=== PATIENT | female | born 1935 | race Asian ===

== ENCOUNTER 2016-04-16 03:16 | Inpatient (IN) | payer MEDICARE, BC ==
[2016-04-16] MEDS ORDERED: SODIUM CHLORIDE 0.9% 1,000 ML IV STA ×2 (03:37→03:49)
[2016-04-16] MEDS ORDERED: cefTRIAXone 2,000 MG in SODIUM CHLORIDE 0.9% 100 ML IVPB STA (03:37)
[2016-04-16] MEDS ORDERED: ACETAMINOPHEN TAB 500 MG TAB PO STA (03:37)
[2016-04-16] MEDS ORDERED: IBUPROFEN 600 MG TAB PO STA (03:37)
[2016-04-16] MEDS ORDERED: SODIUM CHLORIDE 0.9% 500 ML IV STA (03:37)
--- NOTE | 2016-04-16 03:41 | ED ---
General Adult HPI - General Chief complaint: Abdominal Pain Stated complaint: DX: BLADDER INFECTION. CHILLS Time Seen by Provider: 04/16/16 03:22 Source: patient, RN notes reviewed, old records reviewed Mode of arrival: wheelchair Limitations: no limitations - History of Present Illness Initial comments: This is a 80-year-old female here for evaluation. Patient's to yearly for evaluation of fever. Patient has had continued fever for 2-3 days now. Patient states she does have mild bowel pain anterior suprapubic bowel pain. Patient was recently diagnosed urinary tract infection. Patient denies nausea vomiting. Denies diarrhea, denies cough or congestion - Related Data Home Medications Medication Instructions Recorded Confirmed Celecoxib [CeleBREX] 200 mg PO DAILY 04/16/16 04/16/16 Allergies Allergy/AdvReac Type Severity Reaction Status Date / Time No Known Allergies Allergy Verified 04/16/16 03:30 Review of Systems ROS Statement: Those systems with pertinent positive or pertinent negative responses have been documented in the HPI. ROS Other: All systems not noted in ROS Statement are negative. Past Medical History Past Medical History: Rheumatoid Arthritis (RA) History of Any Multi-Drug Resistant Organisms: None Reported Past Surgical History: Hysterectomy, Orthopedic Surgery Additional Past Surgical History / Comment(s): left knee replacement Past Psychological History: No Psychological Hx Reported Smoking Status: Never smoker Past Alcohol Use History: None Reported Past Drug Use History: None Reported General Exam Limitations: no limitations General appearance: alert, in no apparent distress, anxious Head exam: Present: atraumatic, normocephalic, normal inspection Eye exam: Present: normal appearance, PERRL, EOMI. Absent: scleral icterus, conjunctival injection, periorbital swelling ENT exam: Present: normal exam, mucous membranes moist Neck exam: Present: normal inspection. Absent: tenderness, meningismus, lymphadenopathy Respiratory exam: Present: normal lung sounds bilaterally. Absent: respiratory distress, wheezes, rales, rhonchi, stridor Cardiovascular Exam: Present: regular rate, normal rhythm, normal heart sounds. Absent: systolic murmur, diastolic murmur, rubs, gallop, clicks GI/Abdominal exam: Present: soft, normal bowel sounds. Absent: distended, tenderness, guarding, rebound, rigid Extremities exam: Present: normal inspection, full ROM, normal capillary refill. Absent: tenderness, pedal edema, joint swelling, calf tenderness Back exam: Present: normal inspection Neurological exam: Present: alert, oriented X3, CN II-XII intact Psychiatric exam: Present: normal affect, normal mood Skin exam: Present: warm, dry, intact, normal color. Absent: rash Course Vital Signs 04/16/16 03:25 Temperature 102.1 F H Pulse Rate 16 L Respiratory 96 H Rate Blood Pressure 123/58 O2 Sat by Pulse 95 Oximetry - Reevaluation(s) Reevaluation #1: 04/16/16 04:45 patient refusing CAT scan secondary to recent CAT scan yesterday. Patient would like of results obtained Unable to obtain results of prior CAT scan Reevaluation #2: 04/16/16 04:46 Patient's symptoms are mildly improved with symptomatic control EKG Findings - EKG Comments: EKG Findings:: EKG shows normal sinus rhythm rate of 77, MS 126, QRS 90, QTC 400 Medical Decision Making - Medical Decision Making 80 female to ER for evaluation of bowel pain, severe, UTI, concern for sepsis, patient refusing CAT scan she states she just had one. Unable to get records at this time. Patient does have nausea no vomiting. Weakness and dehydration. Patient be admitted for IV antibiotics and rehydration as well as trying to find results of recent CAT scan - Radiology Data Radiology results: report reviewed (X-ray two-view is negative for acute disease ), image reviewed Disposition Clinical Impression: Abdominal pain, UTI (urinary tract infection), SIRS (systemic inflammatory response syndrome) Disposition: ADMITTED IP TO THIS [facility] Condition: Fair Referrals: Jessica Blas DO [Primary Care Provider] - 1-2 days
[2016-04-16 04:41] LABS: Basophils % (A) 0 %; CHCM 34.2; Eosinophils % (A) 1 %; HCT 33.7 % (34.0-46.0); HDW 2.26; HGB 11.3 gm/dL (11.4-16.0); Luc # (Auto) 0.04; Luc % (Auto) 1; Lymphocytes # (A) 0.3 k/uL (1.0-4.8); Lymphocytes % (A) 5 %; MCH 31.5 pg (25.0-35.0); MCHC 33.6 g/dL (31.0-37.0); MCV 93.7 fL (80.0-100.0); Mean Platelet Volume 6.7; Monocytes # (A) 0.1 k/uL (0-1.0); Monocytes % (A) 2 %; Neutrophils # (A) 5.4 k/uL (1.3-7.7); Neutrophils % (A) 93 %; WBC 5.8 k/uL (3.8-10.6); WBC (Perox) 6.09
[2016-04-16 04:51] LABS: ALT 197 U/L (9-52); AST 345 U/L (14-36); Alkaline Phosphatase 209 U/L (38-126); Anion Gap 12 mmol/L; Blood Urea Nitrogen 12 mg/dL (7-17); Calcium 8.7 mg/dL (8.4-10.2); Carbon Dioxide 21 mmol/L (22-30); Chloride 103 mmol/L (98-107); Glucose 119 mg/dL (74-99); Non-African American GFR(MDRD) >60 (>60 ml/min/1.73 sqM); Potassium 3.8 mmol/L (3.5-5.1); Sodium 136 mmol/L (137-145); Total Bilirubin 0.7 mg/dL (0.2-1.3); Total Protein 5.8 g/dL (6.3-8.2)
--- NOTE | 2016-04-16 04:54 | XR ---
EXAMINATION TYPE: XR chest 2V DATE OF EXAM: 04/16/2016 4:36 AM COMPARISON: NONE HISTORY: Fever and chills TECHNIQUE: Frontal and lateral views of the chest are obtained. FINDINGS: Heart and mediastinum are normal. Lungs are clear of consolidation. There is slight coarse nikki of interstitial markings on the left side. There are no hilar masses. Bony thorax is intact. IMPRESSION: Mild interstitial density on the left side probably relates to some degree of fibrosis. Normal heart.
[2016-04-16] MEDS ORDERED: AMPICILLIN-SULBACTAM 3 GM in SODIUM CHLORIDE 0.9% 100 ML IVPB STA (05:20)
--- NOTE | 2016-04-16 05:21 | ED ---
Medical Decision Making - Medical Decision Making Amonate female here for evaluation. Patient does have abdominal pain, abnormal liver enzymes and gallbladder enzymes, we'll obtain ultrasound of gallbladder. Again patient refusing CAT scan at this time will still attempt to retrieve CAT scan results that she had prior - Lab Data Result diagrams: 04/16/16 04:15 04/16/16 04:15 Lab Results 04/16/16 04/16/16 04/16/16 Range/Units 04:15 04:15 04:15 WBC 5.8 (3.8-10.6) k/uL RBC 3.60 L (3.80-5.40) m/uL Hgb 11.3 L (11.4-16.0) gm/dL Hct 33.7 L (34.0-46.0) % MCV 93.7 (80.0-100.0) fL MCH 31.5 (25.0-35.0) pg MCHC 33.6 (31.0-37.0) g/dL RDW 12.0 (11.5-15.5) % Plt Count 156 (150-450) k/uL Neutrophils % 93 % Lymphocytes % 5 % Monocytes % 2 % Eosinophils % 1 % Basophils % 0 % Neutrophils # 5.4 (1.3-7.7) k/uL Lymphocytes # 0.3 L (1.0-4.8) k/uL Monocytes # 0.1 (0-1.0) k/uL Eosinophils # 0.0 (0-0.7) k/uL Basophils # 0.0 (0-0.2) k/uL Sodium 136 L (137-145) mmol/L Potassium 3.8 (3.5-5.1) mmol/L Chloride 103 (98-107) mmol/L Carbon Dioxide 21 L (22-30) mmol/L Anion Gap 12 mmol/L BUN 12 (7-17) mg/dL Creatinine 0.70 (0.52-1.04) mg/dL Est GFR (MDRD) Af Amer >60 (>60 ml/min/1.73 sqM) Est GFR (MDRD) Non-Af >60 (>60 ml/min/1.73 sqM) Glucose 119 H (74-99) mg/dL Plasma Lactic Acid Arnel 1.8 (0.7-2.0) mmol/L Calcium 8.7 (8.4-10.2) mg/dL Phosphorus 2.0 L (2.5-4.5) mg/dL Magnesium 2.0 (1.6-2.3) mg/dL Total Bilirubin 0.7 (0.2-1.3) mg/dL AST 345 H (14-36) U/L ALT 197 H (9-52) U/L Alkaline Phosphatase 209 H (38-126) U/L Total Protein 5.8 L (6.3-8.2) g/dL Albumin 3.3 L (3.5-5.0) g/dL - Radiology Data Radiology results: report reviewed (Ultrasound abdominal pending) Disposition Clinical Impression: Abdominal pain, UTI (urinary tract infection), SIRS (systemic inflammatory response syndrome) Disposition: ADMITTED IP TO THIS HOSP Condition: Fair
[2016-04-16 05:31] LABS: INR 0.9 (<1.1); Partial Thromboplastin Time 22.8 sec (22.0-30.0); Prothrombin Time 9.5 sec (9.0-12.0)
[2016-04-16 05:54] LABS: Troponin I 0.062 ng/mL (0.000-0.034)
[2016-04-16 06:02] LABS: Amorphous Sediment,Urine Rare /hpf; Appearance,Urine Clear (Clear); Bacteria,Urine Rare /hpf; Bilirubin,Urine Negative (Negative); Glucose,Urine (UA) Negative (Negative); Ketones,Urine Negative (Negative); Leukocyte Esterase,Urine Trace (Negative); Mucus,Urine Rare /hpf; Nitrite,Urine Negative (Negative); Particle Count 2629; Protein,Urine Trace (Negative); RBC,Urine 4 /hpf (0-5); Specific Gravity,Urine 1.007 (1.001-1.035); Squamous Epithelial Cell,Urine <1 /hpf (0-4); UA Billing (MACRO vs. MICRO) MICRO; Urobilinogen,Urine <2.0 mg/dL (<2.0); WBC,Urine 7 /hpf (0-5)
[2016-04-16] MEDS: SODIUM CHLORIDE 0.9% 1,000 ML IV ONE ×2 (06:45→10:30)
[2016-04-16] MEDS ORDERED: SODIUM CHLORIDE 0.9% 500 ML IV ONE (08:37)
[2016-04-16] MEDS ORDERED: ATORVASTATIN 20 MG TAB PO SCH (09:00)
[2016-04-16] MEDS ORDERED: cefTRIAXone 2,000 MG in SODIUM CHLORIDE 0.9% 100 ML IVPB SCH (09:00)
[2016-04-16] MEDS: LEVOTHYROXINE 25 MCG TAB PO SCH (13:11)
--- NOTE | 2016-04-16 13:53 | US ---
EXAMINATION TYPE: US gallbladder DATE OF EXAM: 04/16/2016 10:59 AM COMPARISON: CT on 04/15/2016 at [facility] scanned into PACS CLINICAL HISTORY: elevated liver enzymes. EXAM MEASUREMENTS: Liver Length: 14.3 cm Gallbladder Wall: 0.1 cm CBD: 0.4 cm Right Kidney: 10.4 x 5.2 x 5.5 cm ANATOMY: Pancreas: wnl Liver: no gross abnormality Gallbladder: no stones Evidence for sonographic Funk's sign: yes CBD: wnl Right Kidney: wnl for size, Lower pole, lateral aspect complex mass with thickened rind, no vascula rity measuring 3.6 x 3.6 x 3.1 cm TECHNOLOGIST IMPRESSION: complex mass right kidney as noted above IMPRESSION: 1. 2.9 cm right renal cyst. 2. There is a 3.6 x 3.6 x 3 x 1 cm complex mass at the inferior pole right kidney. Contrast CT of the abdomen is recommended. This is scheduled for the same date Normal Values: Liver Length: < 16cm wnl, 17-18cm upper limits, >18cm enlarged Renal Length = 9 - 12cm GB Wall: < 0.3cm CBD: < 0.6cm or < 1.0cm post cholecystectomy
[2016-04-16] MEDS: SODIUM CHLORIDE 0.9% 1,000 ML IV SCH ×2 (14:52→18:41)
[2016-04-16] MEDS: AMPICILLIN-SULBACTAM 3 GM in SODIUM CHLORIDE 0.9% 100 ML IVPB SCH ×2 (14:56→22:47)
[2016-04-16] MEDS: ATORVASTATIN 20 MG TAB PO SCH (22:47)
[2016-04-17] MEDS ORDERED: ACETAMINOPHEN IV (For NPO) 1,000 MG in EMPTY BAG 1 BAG IVPB PRN (01:08)
[2016-04-17] MEDS ORDERED: VANCOMYCIN 1,000 MG in SODIUM CHLORIDE 0.9% 250 ML IVPB STA (01:14)
--- NOTE | 2016-04-17 02:07 | XR ---
EXAMINATION TYPE: XR chest 1V portable DATE OF EXAM: 04/17/2016 1:23 AM COMPARISON: 04/16/2016 HISTORY: Fever TECHNIQUE: Single frontal view of the chest is obtained. FINDINGS: There is pulmonary interstitial edema. There is slight blunting of the costophrenic angles . There are no hilar masses. Heart size is fairly normal. IMPRESSION: There is increasing pulmonary interstitial infiltrates compared to yesterday that could relate to acute heart failure or interstitial pneumonia. There are probably increasing pleural effusi ons.
[2016-04-17] MEDS ORDERED: RX INFO: IV CONTRAST WAS GIVEN 1 EACH MISC MISCELLANE PRN (03:36)
--- NOTE | 2016-04-17 04:37 | CT ---
EXAMINATION TYPE: CT angio chest DATE OF EXAM: 04/17/2016 4:09 AM COMPARISON: NONE HISTORY: elevated d-dimer CT DLP: 454 mGycm Automated exposure control for dose reduction was used. CONTRAST: CTA scan of the thorax is performed with IV Contrast, patient injected with 80 mL of Omnipaque 350, p ulmonary embolism protocol. MIP images are created and reviewed. 3D reconstructed images are create d on an independent workstation and reviewed. FINDINGS: There are small bilateral pleural effusions. There is a small pericardial effusion. There is normal c ontrast opacification of the pulmonary arteries. I see no filling defect. There is no mediastinal primo nopathy. There are no hilar masses. There is no evidence of aortic aneurysm or dissection. IMPRESSION: NO EVIDENCE OF PULMONARY EMBOLISM. SMALL PLEURAL EFFUSIONS AND PERICARDIAL EFFUSION.
[2016-04-17] MEDS: SODIUM CHLORIDE 0.9% 1,000 ML IV SCH ×2 (06:34→12:10)
[2016-04-17] MEDS: AMPICILLIN-SULBACTAM 3 GM in SODIUM CHLORIDE 0.9% 100 ML IVPB SCH ×3 (06:38→23:50)
[2016-04-17] MEDS: LEVOTHYROXINE 25 MCG TAB PO SCH (06:38)
[2016-04-17 07:08] LABS: Basophils % (A) 0 %; CH 31.6; CHCM 33.1; Eosinophils % (A) 0 %; HCT 29.1 % (34.0-46.0); HDW 2.38; HGB 9.9 gm/dL (11.4-16.0); Luc # (Auto) 0.04; Luc % (Auto) 0; Lymphocytes # (A) 0.3 k/uL (1.0-4.8); Lymphocytes % (A) 3 %; MCH 32.6 pg (25.0-35.0); MCV 95.8 fL (80.0-100.0); Mean Platelet Volume 6.9; Monocytes # (A) 0.3 k/uL (0-1.0); Monocytes % (A) 2 %; Neutrophils # (A) 11.6 k/uL (1.3-7.7); Neutrophils % (A) 95 %; RBC 3.04 m/uL (3.80-5.40); RDW 12.2 % (11.5-15.5); WBC 12.3 k/uL (3.8-10.6); WBC (Perox) 13.34
[2016-04-17 07:22] LABS: Anion Gap 10 mmol/L; Blood Urea Nitrogen 10 mg/dL (7-17); Calcium 7.3 mg/dL (8.4-10.2); Carbon Dioxide 17 mmol/L (22-30); Chloride 111 mmol/L (98-107); Glucose 95 mg/dL (74-99); Non-African American GFR(MDRD) >60 (>60 ml/min/1.73 sqM); Sodium 138 mmol/L (137-145)
[2016-04-17 07:32] LABS: Potassium 2.8 mmol/L (3.5-5.1)
[2016-04-17] MEDS ORDERED: Potassium Replacement Protocol 1 EACH MISC MISCELLANE PRN (07:44)
[2016-04-17] MEDS ORDERED: IV VANCOMYCIN PER PHARMACY 1 EACH MISC MISCELLANE PRN (08:01)
[2016-04-17] MEDS: POTASSIUM CHLORIDE ER 20 MEQ TAB.ER PO SCH ×3 (09:25→13:32)
--- NOTE | 2016-04-17 12:23 | HP ---
DATE OF ADMISSION: 04/16/2016 CHIEF COMPLAINT: Abdominal pains and bladder infection and chills. HISTORY OF PRESENT ILLNESS: This 80 -year-old woman with past medical history of multiple medical problems including history of hypothyroidism, hysterectomy, being followed by Dr. Jessica Chen in the outpatient setting was complaining of abdominal pain, diffuse in character, which is mostly in the right low groin area and also shaking chills, also history of bladder infection also. The patient is evaluated in [facility] and was found to have complex mass in the right kidney was noted. The patient came to [facility] and evaluated included ultrasound, also confirmed the right kidney lower pole lateral aspect, complex mass with thickened vascular dimension 3.6 x 3.6 x 3.1 mm and the patient admitted for further evaluation and treatment. There is no history of fever, rigors or chills. No history of headache, loss of consciousness or seizures. PAST MEDICAL HISTORY: History of rheumatoid arthritis, UTI, history of hypothyroidism, hysterectomy, DJD. Medications prior to admission include home medications include: 1. Nitrofurantoin 100 mg p.o. b.i.d. 2. Synthroid 25 mcg p.o. daily. 3. Celebrex 200 mg p.o. daily. 4. Lipitor 20 mg q.h.s. ALLERGIES: None. FAMILY HISTORY: No history of heart disease or strokes in the family. SOCIAL HISTORY: No history of smoking, no history of alcohol intake. REVIEW OF SYSTEMS: HEENT: No diminished vision. No diminished hearing. CARDIOVASCULAR: No angina or palpitations. RESPIRATORY: No cough. GI: No nausea or vomiting. GENITOURINARY: No dysuria or hematuria. CENTRAL NERVOUS SYSTEM: No numbness or weakness. Allergy/immunology: No asthma or hayfever. MUSCULOSKELETAL: As mentioned earlier. HEMATOLOGY/ONCOLOGY: No history of anemia. ENDOCRINE: No history of diabetes mellitus or hypothyroidism. CONSTITUTIONAL: As mentioned earlier. DERMATOLOGY: Negative. RHEUMATOLOGY: Negative. PSYCHIATRY: As mentioned earlier. PHYSICAL EXAMINATION: The patient is alert and oriented x3. Pulse 55, blood pressure 190/71, respiratory rate 16, temperature 97.9. Pulse ox 97% on room air. HEENT: Conjunctivae normal. NECK: No jugular venous distention. CARDIOVASCULAR: S1, S2 muffled. RESPIRATORY: Breath sounds diminished at the bases. No rhonchi. No crackles. ABDOMEN: Soft. No mass palpable. Minimal tenderness in the right groin area and also right lower abdomen. No ascites. Bowel sounds present. EXTREMITIES: Legs no edema. No swelling. CENTRAL NERVOUS SYSTEM: Higher functions as mentioned earlier. Moves all four limbs. No focal deficits. LYMPHATICS: No lymph nodes palpable in the neck, axillae or groin. SKIN: No ulcer, rash or bleeding. LABS: WBC n, hemoglobin 11.3. Sodium 136. Troponin was 0.06. UA noted. ASSESSMENT: 1. Abdominal pain, possibly right renal complex mass lesion in the kidneys. 2. Anemia, normocytic, anemia of chronic disease. 3. Hyponatremia. 4. Increased AST, ALT; possible acute hepatitis of undetermined etiology. 5. Increased alkaline phosphatase. 6. Hypoalbuminemia. 7. Rule out urinary tract infection. 8. History of rheumatoid arthritis. 9. History of hypothyroidism. 10. History of degenerative joint disease. 11. FULL CODE. RECOMMENDATIONS AND DISCUSSION: In this 80 -year-old woman who presented with multiple complex medical issues, we will monitor the patient closely. Continue the current medications. Continue symptomatic treatment. We will initiate, treat the patient symptomatically. Resume home medications. Broad-spectrum IV antibiotics has been given. We will follow the patient closely. Urology consultation will be requested. Otherwise symptomatic treatment of pain also be offered. Prognosis guarded because of multiple complex medical issues. We will repeat labs tomorrow. Further recommendations to follow. The patient may be asked to follow up with primary physician, Dr. Jessica Chen closely after discharge. Further recommendations to follow. NOBLED
[2016-04-17] MEDS: 0.9% NACL WITH KCL 40 MEQ/L 1,000 ML IV SCH (14:46)
[2016-04-17] MEDS: VANCOMYCIN 1,000 MG in SODIUM CHLORIDE 0.9% 250 ML IVPB SCH (17:38)
[2016-04-17] MEDS ORDERED: ACETAMINOPHEN TAB 325 MG TAB PO PRN (18:25)
[2016-04-17] MEDS ORDERED: HEPARIN SODIUM,PORCINE 5,000 UNIT/ML 1 ML VIAL IV PRN (19:47)
[2016-04-17] MEDS ORDERED: HEPARIN SODIUM,PORCINE 5,000 UNIT/ML 1 ML VIAL IV ONE (19:47)
[2016-04-17 20:18] LABS: Basophils % (A) 0 %; CH 32.4; Eosinophils # (A) 0.1 k/uL (0-0.7); Eosinophils % (A) 0 %; HDW 2.46; HGB 10.7 gm/dL (11.4-16.0); Luc # (Auto) 0.12; Luc % (Auto) 1; Lymphocytes # (A) 0.9 k/uL (1.0-4.8); Lymphocytes % (A) 8 %; MCH 31.1 pg (25.0-35.0); MCHC 31.5 g/dL (31.0-37.0); MCV 98.8 fL (80.0-100.0); Mean Platelet Volume 7.2; Monocytes # (A) 0.3 k/uL (0-1.0); Monocytes % (A) 3 %; Neutrophils # (A) 10.5 k/uL (1.3-7.7); Neutrophils % (A) 88 %; RBC 3.45 m/uL (3.80-5.40); RDW 12.4 % (11.5-15.5); WBC 11.9 k/uL (3.8-10.6); WBC (Perox) 12.69
[2016-04-17 20:27] LABS: INR 1.1 (<1.1); Partial Thromboplastin Time 26.5 sec (22.0-30.0); Prothrombin Time 10.9 sec (9.0-12.0)
[2016-04-17] MEDS: ATORVASTATIN 20 MG TAB PO SCH (20:56)
[2016-04-17] MEDS: HEPARIN SODIUM,PORCINE/D5W PMX 25,000 UNIT in DEXTROSE/WATER 1 500ML.BAG IV SCH (20:57)
[2016-04-18 03:50] LABS: Basophils % (A) 0 %; CH 32.3; CHCM 32.6; Eosinophils # (A) 0.1 k/uL (0-0.7); Eosinophils % (A) 1 %; HCT 31.9 % (34.0-46.0); HDW 2.43; HGB 9.9 gm/dL (11.4-16.0); Luc # (Auto) 0.11; Luc % (Auto) 1; Lymphocytes # (A) 1.2 k/uL (1.0-4.8); Lymphocytes % (A) 11 %; MCH 30.9 pg (25.0-35.0); MCV 99.4 fL (80.0-100.0); Mean Platelet Volume 7.5; Monocytes # (A) 0.4 k/uL (0-1.0); Monocytes % (A) 3 %; Neutrophils # (A) 9.8 k/uL (1.3-7.7); Neutrophils % (A) 84 %; RBC 3.21 m/uL (3.80-5.40); RDW 12.4 % (11.5-15.5); WBC 11.7 k/uL (3.8-10.6); WBC (Perox) 12.18
[2016-04-18 04:05] LABS: Anion Gap 8 mmol/L; Blood Urea Nitrogen 8 mg/dL (7-17); Calcium 7.3 mg/dL (8.4-10.2); Carbon Dioxide 16 mmol/L (22-30); Chloride 118 mmol/L (98-107); Glucose 86 mg/dL (74-99); Non-African American GFR(MDRD) >60 (>60 ml/min/1.73 sqM); Potassium 3.7 mmol/L (3.5-5.1); Sodium 142 mmol/L (137-145)
[2016-04-18] MEDS: 0.9% NACL WITH KCL 40 MEQ/L 1,000 ML IV SCH ×2 (04:07→16:21)
[2016-04-18] MEDS: AMPICILLIN-SULBACTAM 3 GM in SODIUM CHLORIDE 0.9% 100 ML IVPB SCH ×3 (05:41→21:59)
[2016-04-18] MEDS: VANCOMYCIN 1,000 MG in SODIUM CHLORIDE 0.9% 250 ML IVPB SCH ×2 (06:41→23:47)
[2016-04-18] MEDS: LEVOTHYROXINE 25 MCG TAB PO SCH (06:41)
[2016-04-18] MEDS: METOPROLOL TARTRATE 25 MG TAB PO SCH ×2 (10:57→22:06)
[2016-04-18] MEDS: ASPIRIN 81 MG CHEW PO SCH (10:57)
--- NOTE | 2016-04-18 11:48 | PN ---
DATE OF SERVICE: 04/17/2016 This 80-year-old woman who presented with abdominal pain and possible urinary tract infection also had a complex mass lesion in the kidney on the right side. The patient is improved significantly. Patient also had a chest x-ray today, which showed increasing pulmonary infiltrate. Chest CT scan was also done, which showed no evidence of pulmonary embolism, small pericardial and pleural effusions were also noted, some prominence of the veins was also noted. The patient also has severe hypokalemia today at 2.8. The BNP is not available. Infectious Disease evaluation has been sought. The patient is running a fever. PAST MEDICAL HISTORY: Reviewed. REVIEW OF SYSTEMS: CARDIOVASCULAR: As mentioned earlier. RESPIRATORY: As mentioned earlier. GI: No nausea. : No dysuria. NERVOUS SYSTEM: No numbness or weakness. Current medications are reviewed and include: 1. Tylenol p.r.n. 2. Unasyn 3 grams IV q.6h. 3. Levothyroxine. 4. Vancomycin. PHYSICAL EXAMINATION: The patient is alert and oriented x3. Pulse 66, blood pressure 120/72, respirations 18, temperature 96.1, pulse ox 94% on room air. HEENT: Conjunctivae normal. Oral mucosa moist. NECK: No jugular venous distention. No carotid bruit. No lymph node enlargement. CARDIOVASCULAR: S1 and S2, muffled. No S3, no S4. RESPIRATORY: Breath sounds diminished at the bases. Bilateral scattered rhonchi and crackles. ABDOMEN: Soft, nontender. No mass palpable. LEGS: No edema, no swelling. NERVOUS SYSTEM: Higher function as mentioned. Moves all four limbs. No focal motor deficits. LYMPHATIC: No lymphadenopathy in the neck, axillae or groin. SKIN: No ulcer, rash or bleeding. LABS: Sodium 130, potassium 2.8, lactic acid was 6 and WBC 12.3, hemoglobin 9.9. ASSESSMENT: 1. Abdominal pain, possibly right renal complex mass lesion in the kidneys or pyelonephritis on the right side with early sepsis. 2. Rule out congestive heart failure. 3. Severe hypokalemia. 4. Anemia, normocytic, anemia of chronic disease. 5. Hyponatremia. 6. Increased AST, ALT; possible acute hepatitis of undetermined etiology. 7. Increased alkaline phosphatase. 8. Hypoalbuminemia. 9. Possible urinary tract infection. 10. History of rheumatoid arthritis. 11. History of hypothyroidism. 12. History of degenerative joint disease. 13. FULL CODE. RECOMMENDATIONS AND DISCUSSION: In this 80-year-old woman who presented with multiple , will continue the current medications. Continue symptomatic treatment. Otherwise, at this time I would recommend to cutdown the IV fluids, a 2-D echo with Doppler, troponins BNP and also recommend . MTDD
--- NOTE | 2016-04-18 15:27 | CONS ---
DATE OF CONSULTATION: Ms. Bryson is [id number] female who was admitted to the hospital on the 16 of April with abdominal pain with a fever and chills. Her temperature was up to 102. She had evidence of urinary tract infection. Has been evaluated in [facility] and underwent CT scanning of the abdomen revealed a complex cystic mass involving the inferior right kidney with possible inflammation in the right perinephric space. She came into the emergency room at [facility] and subsequently underwent an ultrasound that confirmed the mass. Cardiology consultation was requested because of abnormal troponin. Patient denies any cardiac history. She said she had some chest discomfort on and off in the past but not recently, was evaluated by her primary care physician and her EKGs where unremarkable. She denies any history of exertional chest discomfort. She has no history of dyspnea on exertion, although she was dyspneic yesterday. She has no dizziness, palpitation or syncope. No PND, orthopnea, or peripheral edema. She is reasonably active physically. Her coronary risk factors are negative for smoking. She is nondiabetic, nonhypertensive. She is hyperlipidemic. Her medications at home include: 1. Lipitor 20 mg daily. 2. Macrobid. 3. Synthroid. 4. Celebrex. REVIEW OF SYSTEMS: RESPIRATORY SYSTEM: She has no recent wheezing. No cough. No history of obstructive lung disease. GI system: She has no prior history of GI bleed. No peptic ulcer disease. system: She had dysuria, history of urine tract infection recently and the mass noted on the ultrasound. Nervous system: No history of stroke or seizure. PHYSICAL EXAMINATION: She is a 80-year-old female, alert, oriented, in no apparent distress, temperature on admission of 102.1. She was 104 yesterday, this morning 98.1. Blood pressure 127/60 with a heart in the 70s. HEAD: Normocephalic. EYES: Sclerae anicteric. NECK: Good upstroke. No bruit. No jugular venous distention. LUNGS: Clear to auscultation. HEART: Regular rate rhythm. S1, S2, no S3, with systolic murmur heard at the base. No diastolic murmur. No rub. ABDOMEN: Soft. No significant tenderness. No rebound. Positive bowel sounds. No organomegaly. EXTREMITIES: No edema. Intact distal pulses. Lab data revealed a BUN and creatinine of 10 and 0.7. Potassium 2.8. Her bicarb 16. Her troponin on admission was 0.062, then 2.1, and then 1.64. NT-proBNP is 6600. Hemoglobin 9.9. White blood cells on presentation 5.8 and subsequently up to 12.3. Her EKG on admission revealed sinus mechanism with no acute changes. Subsequent EKG showed T-wave inversion in V1 and V2. She had a CT angiogram of the chest that showed no evidence of pulmonary embolism with small pleural effusion. Her ultrasound of the gallbladder revealed a complex mass at the inferior pole of the right kidney. Her chest x-ray done yesterday revealed suggestion of either interstitial pneumonia or heart failure. IMPRESSION: 1. Elevated troponin consistent with non-ST segment elevation myocardial infarction with T-wave inversion anteriorly. Her scenario raises the possibility of takotsubo syndrome. The patient had no significant chest pain, came into quite febrile and there is evidence of infectious process. 2. Renal mass etiology unclear. 3. History of hyperlipidemia. 4. Increased bicarb, unclear etiology. RECOMMENDATIONS: From the cardiac standpoint, I do not believe that acute angiography is indicated at this time, we will obtain an echocardiogram with Doppler. I will add to her regimen beta masoud, and Aspirin. Her potassium will be supplemented. It is up to 3.7 today. I will repeat her lactic acid was elevated on presentation consistent with sepsis. I believe those findings are indeed the predominantly the etiology behind her troponin elevation but will await the input of the infectious disease service as well as urology service. Depending on the results of her echo and her clinical progress, further recommendation will be made. Thank you for this consult. We will follow with you.
[2016-04-18] MEDS ORDERED: FUROSEMIDE 10 MG/ML 4 ML VIAL ONE ×2 (17:19→18:07)
[2016-04-18] MEDS ORDERED: ALBUTEROL NEBULIZED 2.5 MG/3 ML INHALATION PRN (17:21)
--- NOTE | 2016-04-18 17:36 | XR ---
EXAMINATION TYPE: XR chest 1V DATE OF EXAM: 04/18/2016 5:30 PM COMPARISON: 04/17/2016 HISTORY: Dyspnea TECHNIQUE: Single frontal view of the chest is obtained. FINDINGS: Heart is enlarged. There is pulmonary vascular congestion. There is slight blunting of cos tophrenic angles. There are chest leads. IMPRESSION: Congestive heart failure with mild pulmonary edema. This appears slightly worse than yes terday.
[2016-04-18] MEDS ORDERED: FUROSEMIDE 10 MG/ML 2 ML VIAL IV ONE (17:48)
[2016-04-18] MEDS: ATORVASTATIN 20 MG TAB PO SCH (22:06)
--- NOTE | 2016-04-18 22:50 | P.CONS ---
History of Present Illness - Reason for Consult Consult date: 04/18/16 - Chief Complaint fever and abdominal pain - History of Present Illness Pleasant 80-year-old woman who emigrated from [place] 54 years ago relates that she was in her usual state of quite good health when she had the onset of fever with chills associated with abdominal pain that was more to the right side of her abdomen which was anterior and to the right flank. The patient has a known history of a complex lesion on her right kidney and follows with her primary care physician. There was concerns to a recent bout of cystitis and she was placed on nitrofurantoin. Patient diuresis and she was feeling slightly better than at the significant worsening of her symptoms as above. In because of her increasing symptoms she presented to [facility] [place]. With those of fever and leukocytosis she was admitted to hospital. He was concerns to sepsis, urinary infection and possible pulmonary infection the infectious diseases consultation was requested. She has been seen by cardiology because she was having difficulties with her shortness of breath. She had abnormal cardiac enzymes there was a concern to a non-Q wave myocardial infarction and workup is incurring at this point in time. She is on a heparin infusion at this time. Review of Systems HEENT:Denies headache or acute visual change. Denies sinus or mouth discomforts. Denies neck stiffness or pain. Denies significant oral cavity pain. Denies difficulty on swallowing. Lungs: patient is having some shortness of breath. She's Cardiovascular: She had the springtime is having shortness of breath but is not hving signific to the bathroom. But no sy Gastrointestinal:Denies nausea, vomiting, diarrhea, constipation, hematemesis, melena, hematochezia. No no significant change of bowel habit noticed. Musculoskeletal: denies significant myalgias or arthralgias. No new joint swelling. Denies new back pain. Skin: Denies new rash or lesions. No new ulcers or wounds are related.. Neuro: Denies headache or visual change. Denies any new onset weakness or difficulty with ambulation. Denies falls or seizures. Psychiatric:Denies anxiety or depression. Endocrine: Complaints of fatigue and has had some weight gain Past Medical History Past Medical History: Rheumatoid Arthritis (RA), Thyroid Disorder History of Any Multi-Drug Resistant Organisms: None Reported Past Surgical History: Hysterectomy, Orthopedic Surgery Additional Past Surgical History / Comment(s): left knee replacement Past Anesthesia/Blood Transfusion Reactions: No Reported Reaction Past Psychological History: No Psychological Hx Reported Additional Psychological History / Comment(s): lives with her In the family home. Spends 6 months in [place] each year. Originally from [place] emigrated 54 years ago lasting more than 10 years ago. They have traveled only to [place] since then. No animals in the home. No and else is ill in the home Smoking Status: Never smoker Past Alcohol Use History: None Reported Past Drug Use History: None Reported - Past Family History Father History Unknown: Yes Mother History Unknown: Yes Brother(s) History Unknown: Yes Medications and Allergies Home Medications and Allergies Comment(s): Current Medications Acetaminophen (Tylenol Tab) 650 mg PO Q6HR PRN PRN Reason: Fever and/ or Pain Last Admin: 04/17/16 19:16 Dose: 650 mg Albuterol Sulfate (Ventolin Nebulized) 2.5 mg INHALATION RT-TID PRN PRN Reason: Shortness Of Breath Or Wheezing Last Admin: 04/18/16 17:30 Dose: 2.5 mg Aspirin (Aspirin) 81 mg PO DAILY [facility] Last Admin: 04/18/16 10:57 Dose: 81 mg Atorvastatin Calcium (Lipitor) 20 mg PO HS [facility] Last Admin: 04/18/16 22:06 Dose: 20 mg Furosemide (Lasix) 40 mg IV BID [facility] Heparin Sodium (Porcine) (Heparin) 0 unit IV PER PROTOCOL PRN; Protocol PRN Reason: Low PTT Ampicillin Sodium/Sulbactam (Sodium 3 gm/ Sodium Chloride) 100 mls @ 100 mls/ hr IVPB Q8H [facility] Last Admin: 04/18/16 21:59 Dose: 100 mls/hr Vancomycin HCl 1,000 mg/ (Sodium Chloride) 250 mls @ 125 mls/hr IVPB Q16H [facility] Last Admin: 04/18/16 06:41 Dose: 125 mls/hr Potassium Chloride/Sodium Chloride (Ns-Kcl 40 Meq/L Iv Solution) 1,000 mls @ 75 mls/hr IV .[id number] [facility] Last Admin: 04/18/16 16:21 Dose: 75 mls/hr Heparin Sodium/Dextrose 25,000 (unit/ IV Solution) 500 mls @ 13 mls/hr IV .Q24H [facility]; 12 UNITS/KG/HR PRN Reason: Protocol Last Admin: 04/17/16 20:57 Dose: 12 units/kg/hr, 13 mls/hr Levothyroxine Sodium (Synthroid) 25 mcg PO 0630 [facility] Last Admin: 04/18/16 06:41 Dose: 25 mcg Metoprolol Tartrate (Lopressor) 25 mg PO BID [facility] Last Admin: 04/18/16 22:06 Dose: 25 mg Miscellaneous Information (Rx Info: Iv Contrast Was Given) 1 each MISCELLANE DAILY PRN PRN Reason: Per Protocol Stop: 04/19/16 03:37 Miscellaneous Information (Potassium Per Protocol) 1 each MISCELLANE DAILY PRN ; Protocol PRN Reason: Per Protocol Miscellaneous Information (Vancomycin Trough Due) 0 each MISCELLANE DIRECTED ONE Stop: 04/19/16 13:01 Home Medications Medication Instructions Recorded Confirmed Type Atorvastatin [Lipitor] 20 mg PO HS 04/16/16 04/16/16 History Celecoxib [CeleBREX] 200 mg PO DAILY 04/16/16 04/16/16 History Levothyroxine Sodium [Synthroid] 25 mcg PO DAILY 04/16/16 04/16/16 History Nitrofurantoin Monohyd/M-Cryst 100 mg PO BID 04/16/16 04/16/16 History [Macrobid] Allergies Allergy/AdvReac Type Severity Reaction Status Date / Time No Known Allergies Allergy Verified 04/16/16 03:30 Physical Exam Vitals: Vital Signs Temp Pulse Pulse Resp BP BP Pulse Ox 04/18/16 20:00 97.1 F L 78 18 105/57 96 04/18/16 17:45 108 H 04/18/16 17:31 114 H 04/18/16 16:00 97.6 F 68 16 148/82 98 04/18/16 11:12 97.5 F L 73 16 143/67 99 04/18/16 08:00 96.6 F L 76 16 147/69 97 04/18/16 04:00 96.7 F L 69 18 154/65 94 L 04/18/16 00:00 98.1 F 71 18 127/60 93 L Intake and Output 04/18/16 04/18/16 04/18/16 06:59 14:59 22:59 Intake Total 2102 540 Output Total 800 1100 Balance -800 2102 -560 Intake: IV 100 Ampicillin-Sulbactam 3 gm 100 In Sodium Chloride 0.9% 100 ml @ 100 mls/hr IVPB Q8H [facility] Rx#:[id number] Intake, IV Titration 1042 440 Amount 0.9% NaCl with KCl 40 Meq 675 375 /l 1,000 ml @ 75 mls/hr IV .[id number] [facility] Rx#: [id number] Heparin Sodium,Porcine/ 117 65 D5w Pmx 25,000 unit In Dextrose/Water 1 500ml. bag @ 12 UNITS/KG/HR 13 mls/hr IV .Q24H [facility] Rx#: [id number] Vancomycin 1,000 mg In 250 Sodium Chloride 0.9% 250 ml @ 125 mls/hr IVPB Q16H [facility] Rx#:[id number] Oral 1060 Output: Urine 800 1100 Other: Voiding Method Toilet Toilet Toilet # Voids 3 Weight 56.7 kg pleasant 80-year-old womanappears to be just mildly short of breath. no significant cough to the exam HEENT: Anicteric conjunctiva are pink and moist nasal mucosa grossly intact without significant lesions, there is no thrush.good dentition Neck: The neck is supple without significant lymphadenopathy or thyromegaly. Lungs: there is symmetrical air entry. The R few bibasilar crackles There are a few expiratory wheezes Heart: Regular rate and rhythm with an audible S1-S2, no S3 no S4. There is no significant murmur click or rub, PMI was nondisplaced. Abdomen: Positive bowel sounds soft and nontender without palpable masses or organomegaly. There was no guarding or rebound. Extremities: The upper extremities have excellent pulses they are symmetric, no significant petechiae or telangiectasia. No splinter hemorrhages were noted. The lower extremitieshave just trace edema. The peripheral pulses were 2+ and symmetric. Neuro: Awake alert oriented to person place and time. There are no acute new gross focal sensory motor deficits. Results CBC & Chem 7: 04/18/16 03:20 04/18/16 03:20 Labs: Abnormal Lab Results - Last 24 Hours (Table) 04/18/16 04/18/16 04/18/16 Range/Units 03:20 03:20 03:20 WBC 11.7 H (3.8-10.6) k/uL RBC 3.21 L (3.80-5.40) m/uL Hgb 9.9 L (11.4-16.0) gm/dL Hct 31.9 L (34.0-46.0) % Plt Count 142 L (150-450) k/uL Neutrophils # 9.8 H (1.3-7.7) k/uL APTT 61.9 H (22.0-30.0) sec Chloride 118 H (98-107) mmol/L Carbon Dioxide 16 L (22-30) mmol/L Plasma Lactic Acid Arnel (0.7-2.0) mmol/L Calcium 7.3 L (8.4-10.2) mg/dL Troponin I (0.000-0.034) ng/mL 04/18/16 04/18/16 Range/Units 03:20 17:59 WBC (3.8-10.6) k/uL RBC (3.80-5.40) m/uL Hgb (11.4-16.0) gm/dL Hct (34.0-46.0) % Plt Count (150-450) k/uL Neutrophils # (1.3-7.7) k/uL APTT (22.0-30.0) sec Chloride (98-107) mmol/L Carbon Dioxide (22-30) mmol/L Plasma Lactic Acid Arnel 6.0 H* (0.7-2.0) mmol/L Calcium (8.4-10.2) mg/dL Troponin I 1.640 H* (0.000-0.034) ng/mL Microbiology - Last 24 Hours (Table) 04/17/16 01:39 Blood Culture - Preliminary Blood No Growth after 24 hours 04/17/16 01:06 Blood Culture - Preliminary Blood No Growth after 24 hours Laboratory Results WBC 11.7 k/uL (3.8-10.6) H 04/18/16 03:20 RBC 3.21 m/uL (3.80-5.40) L 04/18/16 03:20 Hgb 9.9 gm/dL (11.4-16.0) L 04/18/16 03:20 Hct 31.9 % (34.0-46.0) L 04/18/16 03:20 MCV 99.4 fL (80.0-100.0) 04/18/16 03:20 MCH 30.9 pg (25.0-35.0) 04/18/16 03:20 MCHC 31.0 g/dL (31.0-37.0) 04/18/16 03:20 RDW 12.4 % (11.5-15.5) 04/18/16 03:20 Plt Count 142 k/uL (150-450) L 04/18/16 03:20 Neutrophils % 84 % 04/18/16 03:20 Lymphocytes % 11 % 04/18/16 03:20 Monocytes % 3 % 04/18/16 03:20 Eosinophils % 1 % 04/18/16 03:20 Basophils % 0 % 04/18/16 03:20 Neutrophils # 9.8 k/uL (1.3-7.7) H 04/18/16 03:20 Lymphocytes # 1.2 k/uL (1.0-4.8) 04/18/16 03:20 Monocytes # 0.4 k/uL (0-1.0) 04/18/16 03:20 Eosinophils # 0.1 k/uL (0-0.7) 04/18/16 03:20 Basophils # 0.0 k/uL (0-0.2) 04/18/16 03:20 PT 10.9 sec (9.0-12.0) 04/17/16 20:03 INR 1.1 (<1.1) 04/17/16 20:03 APTT 61.9 sec (22.0-30.0) H 04/18/16 03:20 D-Dimer 32.25 mg/L FEU (<0.60) H 04/17/16 01:06 Sodium 142 mmol/L (137-145) 04/18/16 03:20 Potassium 3.7 mmol/L (3.5-5.1) 04/18/16 03:20 Chloride 118 mmol/L (98-107) H 04/18/16 03:20 Carbon Dioxide 16 mmol/L (22-30) L 04/18/16 03:20 Anion Gap 8 mmol/L 04/18/16 03:20 BUN 8 mg/dL (7-17) 04/18/16 03:20 Creatinine 0.60 mg/dL (0.52-1.04) 04/18/16 03:20 Est GFR (MDRD) Af Amer >60 (>60 ml/min/1.73 sqM) 04/18/16 03:20 Est GFR (MDRD) Non-Af >60 (>60 ml/min/1.73 sqM) 04/18/16 03:20 Glucose 86 mg/dL (74-99) 04/18/16 03:20 Plasma Lactic Acid Arnel 6.0 mmol/L (0.7-2.0) H* 04/18/16 17:59 Calcium 7.3 mg/dL (8.4-10.2) L 04/18/16 03:20 Phosphorus 2.0 mg/dL (2.5-4.5) L 04/16/16 04:15 Magnesium 1.8 mg/dL (1.6-2.3) 04/17/16 06:19 Total Bilirubin 0.7 mg/dL (0.2-1.3) 04/16/16 04:15 AST 345 U/L (14-36) H 04/16/16 04:15 ALT 197 U/L (9-52) H 04/16/16 04:15 Alkaline Phosphatase 209 U/L (38-126) H 04/16/16 04:15 Total Creatine Kinase 101 U/L (30-135) 04/16/16 04:15 CK-MB (CK-2) 1.0 ng/mL (0.0-2.4) 04/16/16 04:15 CK-MB (CK-2) Rel Index 1.0 04/16/16 04:15 Troponin I 1.640 ng/mL (0.000-0.034) H* 04/18/16 03:20 NT-Pro-B Natriuret Pep 6600 pg/mL 04/17/16 18:13 Total Protein 5.8 g/dL (6.3-8.2) L 04/16/16 04:15 Albumin 3.3 g/dL (3.5-5.0) L 04/16/16 04:15 Urine Color Yellow 04/16/16 04:15 Urine Appearance Clear (Clear) 04/16/16 04:15 Urine pH 5.0 (5.0-8.0) 04/16/16 04:15 Ur Specific [place] 1.007 (1.001-1.035) 04/16/16 04:15 Urine Protein Trace (Negative) H 04/16/16 04:15 Urine Glucose (UA) Negative (Negative) 04/16/16 04:15 Urine Ketones Negative (Negative) 04/16/16 04:15 Urine Blood Trace (Negative) H 04/16/16 04:15 Urine Nitrate Negative (Negative) 04/16/16 04:15 Urine Bilirubin Negative (Negative) 04/16/16 04:15 Urine Urobilinogen <2.0 mg/dL (<2.0) 04/16/16 04:15 Ur Leukocyte Esterase Trace (Negative) H 04/16/16 04:15 Urine RBC 4 /hpf (0-5) 04/16/16 04:15 Urine WBC 7 /hpf (0-5) H 04/16/16 04:15 Urine WBC Clumps Rare /hpf (None) H 04/16/16 04:15 Ur Squamous Epith Cells <1 /hpf (0-4) 04/16/16 04:15 Amorphous Sediment Rare /hpf (None) H 04/16/16 04:15 Urine Bacteria Rare /hpf (None) H 04/16/16 04:15 Urine Mucus Rare /hpf (None) H 04/16/16 04:15 Microbiology 04/16/16 04:15 Blood Blood Culture - Preliminary No Growth after 48 hours 04/17/16 01:39 Blood Blood Culture - Preliminary No Growth after 24 hours 04/17/16 01:06 Blood Blood Culture - Preliminary No Growth after 24 hours 04/16/16 04:15 Urine,Voided Urine Culture - Final Assessment and Plan (1) Abdominal pain Narrative/Plan: Pleasant 80-year-old woman who immigrated from [place] 54 years ago presents to emergency center with fever and abdominal pain. Workup has been occurring so far and has revealed evidence of an ultrasound of the abdomen shows the complex renal mass of the right kidney. This is not new. A neurological consult has been requested it may be followed up in the outpatient setting depending on the findings. She is being treated with nitrofurantoin home, which of course would limited only to cystitis treatment. Is now being treated with ampicillin sulbactam and vancomycin while cultures are in process. Given the abnormal ultrasound with a positive Funk's sign was is reasonable choice with concerns for the possibility even of cholecystitis. However on the exam she has no right upper quadrant tenderness. And does not seem to have acute cholecystitis at this time. She does have shortness of breath is being followed by cardiology. Has concerns to a non-Q wave myocardial infarction. She is on heparin infusion and is being followed because of her shortness of breath. CT pulmonary angiogram without evidence of pulmonary embolism but concerns to pulmonary edema. Cultures are currently in process been negative so far. Urinalysis is surprisingly benign. But she was an outpatient antibiotic therapy. She has leukocytosis is starting to show some improvement. And has related is not having significant urinary symptoms but does have some pulmonary symptoms. Status: Acute (2) UTI (urinary tract infection) Status: Acute
[2016-04-18] MEDS: FUROSEMIDE 10 MG/ML 4 ML VIAL IV SCH (23:56)
[2016-04-19] MEDS: HEPARIN SODIUM,PORCINE/D5W PMX 25,000 UNIT in DEXTROSE/WATER 1 500ML.BAG IV SCH ×2 (04:32→20:00)
[2016-04-19] MEDS: 0.9% NACL WITH KCL 40 MEQ/L 1,000 ML IV SCH ×2 (04:33→14:53)
[2016-04-19] MEDS: AMPICILLIN-SULBACTAM 3 GM in SODIUM CHLORIDE 0.9% 100 ML IVPB SCH ×3 (05:12→21:39)
[2016-04-19] MEDS ORDERED: FUROSEMIDE 10 MG/ML 4 ML VIAL IV SCH (06:00)
[2016-04-19] MEDS: LEVOTHYROXINE 25 MCG TAB PO SCH (06:27)
[2016-04-19 07:00] LABS: Basophils % (A) 0 %; CH 31.9; CHCM 34.4; Eosinophils # (A) 0.1 k/uL (0-0.7); Eosinophils % (A) 0 %; HCT 32.7 % (34.0-46.0); HDW 2.54; HGB 11.1 gm/dL (11.4-16.0); Luc # (Auto) 0.32; Luc % (Auto) 2; Lymphocytes # (A) 1.3 k/uL (1.0-4.8); Lymphocytes % (A) 6 %; MCH 31.8 pg (25.0-35.0); MCHC 34.1 g/dL (31.0-37.0); Monocytes # (A) 0.6 k/uL (0-1.0); Monocytes % (A) 3 %; Neutrophils # (A) 17.7 k/uL (1.3-7.7); Neutrophils % (A) 89 %; RDW 12.4 % (11.5-15.5); WBC 19.9 k/uL (3.8-10.6); WBC (Perox) 20.62
[2016-04-19 07:04] LABS: MCV 93.3 fL (80.0-100.0)
[2016-04-19] MEDS: METOPROLOL TARTRATE 25 MG TAB PO SCH ×2 (07:43→19:49)
[2016-04-19] MEDS: ASPIRIN 81 MG CHEW PO SCH (07:43)
[2016-04-19] MEDS: FUROSEMIDE 10 MG/ML 4 ML VIAL IV SCH ×2 (07:43→19:50)
[2016-04-19 08:08] LABS: Anion Gap 11 mmol/L; Calcium 8.3 mg/dL (8.4-10.2); Carbon Dioxide 24 mmol/L (22-30); Chloride 111 mmol/L (98-107); Glucose 112 mg/dL (74-99); Non-African American GFR(MDRD) >60 (>60 ml/min/1.73 sqM); Sodium 146 mmol/L (137-145)
[2016-04-19 08:13] LABS: Blood Urea Nitrogen 10 mg/dL (7-17); Potassium 3.3 mmol/L (3.5-5.1)
[2016-04-19] MEDS ORDERED: POTASSIUM CHLORIDE ER 20 MEQ TAB.ER PO SCH (11:45)
[2016-04-19 12:29] VITALS: BMI 22.6
[2016-04-19] MEDS ORDERED: VANCOMYCIN TROUGH DUE 1 EACH MISC MISCELLANE ONE (13:00)
--- NOTE | 2016-04-19 14:00 | PN ---
DATE OF SERVICE: 04/18/2016 This 80 -year-old woman who was admitted with abdominal pain, had possible right renal complex mass lesion. The patient also had possibly congestive heart failure as well and patient is hypokalemia which improved to 3.7, troponin elevated to 2.110 raising the possibility of acute non-ST segment elevation myocardial infarction, acute coronary syndrome. The lactic acid is elevated at 16. Patient being treated with empiric antibiotics. Infectious disease evaluation has been sought. The patient being closely monitored at this time. The most recent chest x-ray was reviewed which showed some CHF also. A 2-D echo with Doppler has been requested. PAST MEDICAL HISTORY: Reviewed. REVIEW OF SYSTEMS: CARDIOVASCULAR: As mentioned earlier. RESPIRATORY: As mentioned earlier. GASTROINTESTINAL: As mentioned earlier. GENITOURINARY: As mentioned earlier. CENTRAL NERVOUS SYSTEM: No focal deficits. The current medications are reviewed and include: 1. Tylenol 650 q.6 p.r.n. 2. Ventolin q.i.d. p.r.n. 3. Unasyn. 4. Aspirin 81 mg. 5. Lasix 40 mg IV b.i.d. 6. Heparin IV drip. 7. Synthroid. 8. Lopressor. 9. Vancomycin. Patient is alert and oriented x2. Pulse is 78, blood pressure is 105/59, respiratory rate 18, temperature 97.1, pulse ox 97% on 2 L. HEENT: Conjunctivae normal. Oral mucosa moist. NECK: No jugular venous distention. No carotid bruit. No lymph node enlargement. CARDIOVASCULAR: S1, S2 muffled. RESPIRATORY: Breath sounds diminished at the bases. A few scattered rhonchi and crackles. ABDOMEN: Soft, nontender. No mass palpable. LEGS: No edema. No swelling. Nervous system: Higher function as mentioned. Moves all four limbs. No focal deficits. LYMPHATICS: No lymph nodes palpable in the neck, axillae or groin. SKIN: No ulcer, rash or bleeding. LABS: WBC 11.7, hemoglobin 9.9, APTT 1.9. Otherwise, CO2 16. Troponin noted and lactic acid is 6. ASSESSMENT: 1. Abdominal pain, possibly urinary tract infection with sepsis, possible pyelonephritis on the right side. 2. Possible right renal complex mass lesion in the kidneys. 3. Troponin elevated up to 2.110, acute non- ST segment elevation myocardial infarction. 4. Possible congestive heart failure. 5. Severe hypokalemia. 6. Anemia, normocytic, anemia of chronic disease. 7. Hyponatremia. 8. Increased AST, ALT; possible acute hepatitis undetermined origin. 9. Increased alk phos. 10. Hypoalbuminemia. 11. History of rheumatoid arthritis. 12. History of hypothyroidism. 13. degenerative joint disease . 14. Immunosuppressed. 15. FULL CODE. RECOMMENDATIONS AND DISCUSSION: In this 80 -year-old woman who presented with multiple complex medical issues, we will monitor the patient closely. Continue the current medications. Continue symptomatic treatment. I would recommend continuing with broad-spectrum IV antibiotics. Cultures are negative so far. Follow closely with infectious disease and as well as cardiology. Prognosis guarded because of multiple complex medical issues. Will discuss with the patient and the patient's at the bedside who understands and agrees. Further recommendations to follow. NOBLED
[2016-04-19] MEDS: ISOSORBIDE MONONITRATE ER 30 MG TAB.ER.24H PO SCH (14:22)
[2016-04-19] MEDS: POTASSIUM CHLORIDE ER 20 MEQ TAB.ER PO SCH ×3 (14:22→19:49)
[2016-04-19] MEDS: VANCOMYCIN 1,000 MG in SODIUM CHLORIDE 0.9% 250 ML IVPB SCH (14:30)
--- NOTE | 2016-04-19 18:49 | P.GSCN ---
History of Present Illness Consult date: 04/19/16 Reason for Consult: Complex renal cystic mass Requesting physician: Sharita Morrison History of present illness: The patient is a 80-year-old woman who emigrated from [place] in the early 1960s. She denies any prior history of urolithiasis. She was treated for UTIs in her early adult years, but none in the past 30 years. However, she was recently treated for a UTI as an outpatient. She was evaluated at [facility] in April 15, 2016 with complaints of abdominal pain, dyspnea , fever, and chills. A computed tomography scan without contrast showed a right lower pole complex cystic renal mass. She has been admitted and treated with antibiotics. Urine and blood cultures have been negative. Her condition is much improved. Her troponin levels were elevated, and she is being evaluated for the possibility of an [place]. Review of Systems - Constitutional Reports fever - Respiratory Reports dyspnea - Gastrointestinal Reports abdominal pain - Genitourinary Genitourinary: Denies dysuria, Denies hematuria Past Medical History Past Medical History: Rheumatoid Arthritis (RA), Thyroid Disorder History of Any Multi-Drug Resistant Organisms: None Reported Past Surgical History: Hysterectomy, Orthopedic Surgery Additional Past Surgical History / Comment(s): left knee replacement Past Anesthesia/Blood Transfusion Reactions: No Reported Reaction Past Psychological History: No Psychological Hx Reported Additional Psychological History / Comment(s): lives with her In the family home. Spends 6 months in [place] each year. Originally from [place] emigrated 54 years ago lasting more than 10 years ago. They have traveled only to [place] since then. No animals in the home. No and else is ill in the home Smoking Status: Never smoker Past Alcohol Use History: None Reported Past Drug Use History: None Reported - Past Family History Father History Unknown: Yes Mother History Unknown: Yes Brother(s) History Unknown: Yes Medications and Allergies Home Medications Medication Instructions Recorded Confirmed Type Atorvastatin [Lipitor] 20 mg PO HS 04/16/16 04/16/16 History Celecoxib [CeleBREX] 200 mg PO DAILY 04/16/16 04/16/16 History Levothyroxine Sodium [Synthroid] 25 mcg PO DAILY 04/16/16 04/16/16 History Nitrofurantoin Monohyd/M-Cryst 100 mg PO BID 04/16/16 04/16/16 History [Macrobid] Allergies Allergy/AdvReac Type Severity Reaction Status Date / Time No Known Allergies Allergy Verified 04/16/16 03:30 Surgical - Exam Vital Signs Temp Pulse Resp BP Pulse Ox 102.1 F H 16 L 96 H 123/58 95 04/16/16 03:25 04/16/16 03:25 04/16/16 03:25 04/16/16 03:25 04/16/16 03:25 - General well developed, well nourished, no distress - Abdomen Abdomen: soft, non tender, no guarding, no rigid, no rebound - Psychiatric oriented to time, oriented to person, oriented to place, speech is normal, memory intact Results - Labs 04/19/16 06:29 04/19/16 06:29 Abnormal Lab Results - Last 24 Hours (Table) 04/18/16 04/19/16 04/19/16 Range/Units 17:59 06:29 06:29 WBC 19.9 H (3.8-10.6) k/uL RBC 3.50 L (3.80-5.40) m/uL Hgb 11.1 L (11.4-16.0) gm/dL Hct 32.7 L (34.0-46.0) % Plt Count 141 L (150-450) k/uL Neutrophils # 17.7 H (1.3-7.7) k/uL APTT (22.0-30.0) sec Sodium 146 H (137-145) mmol/L Potassium 3.3 L (3.5-5.1) mmol/L Chloride 111 H (98-107) mmol/L Glucose 112 H (74-99) mg/dL Plasma Lactic Acid Arnel 6.0 H* (0.7-2.0) mmol/L Calcium 8.3 L (8.4-10.2) mg/dL 04/19/16 Range/Units 06:29 WBC (3.8-10.6) k/uL RBC (3.80-5.40) m/uL Hgb (11.4-16.0) gm/dL Hct (34.0-46.0) % Plt Count (150-450) k/uL Neutrophils # (1.3-7.7) k/uL APTT 35.0 H (22.0-30.0) sec Sodium (137-145) mmol/L Potassium (3.5-5.1) mmol/L Chloride (98-107) mmol/L Glucose (74-99) mg/dL Plasma Lactic Acid Arnel (0.7-2.0) mmol/L Calcium (8.4-10.2) mg/dL Microbiology - Last 24 Hours (Table) 04/17/16 01:39 Blood Culture - Preliminary Blood No Growth after 48 hours 04/17/16 01:06 Blood Culture - Preliminary Blood No Growth after 48 hours Diabetes panel 04/19/16 Range/Units 06:29 Sodium 146 H (137-145) mmol/L Potassium 3.3 L (3.5-5.1) mmol/L Chloride 111 H (98-107) mmol/L Carbon Dioxide 24 (22-30) mmol/L BUN 10 (7-17) mg/dL Creatinine 0.75 (0.52-1.04) mg/dL Glucose 112 H (74-99) mg/dL Calcium 8.3 L (8.4-10.2) mg/dL Calcium panel 04/19/16 Range/Units 06:29 Calcium 8.3 L (8.4-10.2) mg/dL Pituitary panel 04/19/16 Range/Units 06:29 Sodium 146 H (137-145) mmol/L Potassium 3.3 L (3.5-5.1) mmol/L Chloride 111 H (98-107) mmol/L Carbon Dioxide 24 (22-30) mmol/L BUN 10 (7-17) mg/dL Creatinine 0.75 (0.52-1.04) mg/dL Glucose 112 H (74-99) mg/dL Calcium 8.3 L (8.4-10.2) mg/dL Adrenal panel 04/19/16 Range/Units 06:29 Sodium 146 H (137-145) mmol/L Potassium 3.3 L (3.5-5.1) mmol/L Chloride 111 H (98-107) mmol/L Carbon Dioxide 24 (22-30) mmol/L BUN 10 (7-17) mg/dL Creatinine 0.75 (0.52-1.04) mg/dL Glucose 112 H (74-99) mg/dL Calcium 8.3 L (8.4-10.2) mg/dL - Imaging CT scan - abdomen: report reviewed Assessment and Plan Plan: The patient is a 80-year-old white female admitted with fever, chills, abdominal pain, and dyspnea. She recently was treated for a UTI as an outpatient. Her admitting urinalysis was unremarkable. Her condition is much improved. A computed tomography scan of the abdomen and pelvis without contrast performed at [facility] on 04/15/2016 revealed a 3.7 x 2.8 cm complex cystic mass with areas of high attenuation suggesting blood products involving the posterolateral aspect of the lower pole of the right kidney. Perinephric stranding was also noted. Unfortunately, the images are unavailable for review. Ultrasound shows an avascular 3.6 cm right lower pole complex cystic mass with a thickened capsule. Arrangements will be made for her to undergo a triphase computed tomography scan of the kidneys upon discharge, and she will subsequently follow up with me in the office.
[2016-04-19] MEDS: ATORVASTATIN 20 MG TAB PO SCH (19:49)
--- NOTE | 2016-04-19 21:19 | PN ---
Mrs. Bryson is a 80-year-old female who presented with symptoms of fever, evidence to suggests urinary tract infection who had mild elevation of troponin. She has some diarrhea. She has some dyspnea yesterday, better this morning. She has no chest pain. She has no dizziness, palpitation. She has no nausea. She has been seen by Dr. Rodriguez in regards to her infectious process. She continues to be on Lasix 40 mg IV q.12 hours, aspirin, Lipitor 20 mg daily, metoprolol tartrate 25 mg twice a day in addition to vancomycin. She is lying supine without any symptoms at this time. PHYSICAL EXAMINATION: Blood pressure running in the one teens with the heart rate in the 50s. LUNGS: Clear. HEART: Regular rate rhythm. S1, S2, no S3, no rub appreciated. ABDOMEN: Soft, nontender, positive bowel sounds. EXTREMITIES: No edema. Chest x-ray revealed evidence of fluid overload. BUN and creatinine revealed 10 and 0.75, potassium 3.3. Her lactic acid is down 1.4. Hemoglobin 11.1, white blood cell of 19.9. IMPRESSION: 1. Urinary tract infection with initial elevated lactic acid. 2. Elevation of troponin suggestive of non- ST segment elevation myocardial infarction most likely related to a type II event. 3. Episode of dyspnea with mild failure. RECOMMENDATIONS: I will obtain echocardiogram tomorrow, add to her regimen nitrate. Patient may require coronary angiography, but will follow her infectious process to make sure she is stable before proceeding with that. Depending on her progress, further recommendation will be made.
[2016-04-20] MEDS: AMPICILLIN-SULBACTAM 3 GM in SODIUM CHLORIDE 0.9% 100 ML IVPB SCH ×3 (05:15→20:56)
[2016-04-20] MEDS: HEPARIN SODIUM,PORCINE/D5W PMX 25,000 UNIT in DEXTROSE/WATER 1 500ML.BAG IV SCH ×2 (06:01→20:43)
[2016-04-20] MEDS: VANCOMYCIN 1,000 MG in SODIUM CHLORIDE 0.9% 250 ML IVPB SCH ×2 (06:16→22:16)
[2016-04-20] MEDS: LEVOTHYROXINE 25 MCG TAB PO SCH (06:16)
[2016-04-20 06:24] LABS: Basophils % (A) 0 %; CH 31.9; CHCM 33.4; Eosinophils # (A) 0.2 k/uL (0-0.7); Eosinophils % (A) 2 %; HCT 31.7 % (34.0-46.0); HDW 2.53; HGB 10.2 gm/dL (11.4-16.0); Luc # (Auto) 0.28; Luc % (Auto) 3; Lymphocytes # (A) 1.5 k/uL (1.0-4.8); Lymphocytes % (A) 16 %; MCH 30.7 pg (25.0-35.0); MCHC 32.1 g/dL (31.0-37.0); MCV 95.7 fL (80.0-100.0); Mean Platelet Volume 7.6; Monocytes # (A) 0.5 k/uL (0-1.0); Monocytes % (A) 5 %; Neutrophils % (A) 73 %; RBC 3.31 m/uL (3.80-5.40); RDW 12.5 % (11.5-15.5); WBC 9.5 k/uL (3.8-10.6); WBC (Perox) 9.96
[2016-04-20 06:40] LABS: Anion Gap 8 mmol/L; Blood Urea Nitrogen 15 mg/dL (7-17); Calcium 7.9 mg/dL (8.4-10.2); Carbon Dioxide 25 mmol/L (22-30); Chloride 109 mmol/L (98-107); Glucose 100 mg/dL (74-99); Non-African American GFR(MDRD) >60 (>60 ml/min/1.73 sqM); Potassium 3.1 mmol/L (3.5-5.1); Sodium 142 mmol/L (137-145)
[2016-04-20] MEDS: 0.9% NACL WITH KCL 40 MEQ/L 1,000 ML IV SCH ×2 (06:50→20:48)
[2016-04-20 08:58] VITALS: RESP 16
[2016-04-20] MEDS: ISOSORBIDE MONONITRATE ER 30 MG TAB.ER.24H PO SCH (09:01)
[2016-04-20] MEDS: METOPROLOL TARTRATE 25 MG TAB PO SCH ×2 (09:04→20:45)
[2016-04-20] MEDS: ASPIRIN 81 MG CHEW PO SCH (09:04)
[2016-04-20] MEDS: POTASSIUM CHLORIDE ER 20 MEQ TAB.ER PO SCH ×2 (09:04→20:45)
[2016-04-20] MEDS: FUROSEMIDE 10 MG/ML 4 ML VIAL IV SCH ×2 (09:04→20:45)
--- NOTE | 2016-04-20 09:49 | PN ---
DATE OF SERVICE: 04/19/2016 This 80-year-old woman was admitted with multiple medical problems, status post abdominal pain, UTI, right renal complex mass lesion, also had elevated troponin, possibly indicating acute usn-UX-drljeouva myocardial infarction. Last night, the patient also has, patient feeling much after diuretics. Patient also had possibility of sepsis, also the patient on broad-spectrum IV antibiotics, lactic acid is normal at this time. Dr. Cisneros has evaluated the patient for the right kidney mass and recommend outpatient followup. No chest pain or palpitation. No fever. PAST MEDICAL HISTORY: Reviewed. REVIEW OF SYSTEMS: CARDIOVASCULAR: As mentioned earlier. RESPIRATORY: As mentioned earlier. GI: No nausea, no vomiting. : No dysuria. NERVOUS SYSTEM: No numbness, weakness. ALLERGY/IMMUNOLOGY: No asthma or hayfever. MUSCULOSKELETAL: As mentioned earlier. Current medications are reviewed and include: 1. Tylenol 650 q.6 p.r.n. 2. Unasyn 3 gm IV q.6. 3. Lipitor. 4. Lasix. 5. Heparin. 6. Imdur 30 mg daily. 7. Synthroid. 8. Lopressor 25 mg p.o. b.i.d. 9. KCl. PHYSICAL EXAM: Patient is alert and oriented x3. The pulse is 86, blood pressure 130/77, respirations 16, temperature is 97.4, pulse ox 94% room air. HEENT: Conjunctivae normal. NECK: No jugular venous distension. CARDIOVASCULAR: S1, S2. RESPIRATORY: Breath sounds diminished at the bases. A few scattered rhonchi. ABDOMEN: Soft, nontender, no mass palpable. EXTREMITIES: Bilateral legs no edema, no swelling. NERVOUS SYSTEM: No focal deficits. LABS: WBC is 19.9, hemoglobin is 11.1, sodium is 146, potassium 3.1 and other labs are noted. The last chest x-ray was presently evaluated and showed evidence of CHF. ASSESSMENT: 1. Abdominal pain, possible urinary tract infection with sepsis, possible pyelonephritis on the right side. 2. Possible right renal complex mass lesion of the kidneys. 3. Troponin elevated up to 2.110, acute [id number]-gnyjtshvf myocardial infarction. 4. Congestive heart failure acute exacerbation with ejection fraction unknown. 5. Severe hypokalemia. 6. Anemia, normocytic anemia of chronic disease. 7. Hyponatremia. 8. Increased AST, ALT; possible acute hepatitis of undetermined origin. 9. Increased alkaline phosphatase. 10. Hypoalbuminemia. 11. History of rheumatoid arthritis. 12. History of hypothyroidism. 13. History of degenerative joint disease, immunosuppressed. 14. FULL CODE. RECOMMENDATION: Recommend to continue with the current medications. Continue with the monitoring and symptomatic treatment. Otherwise at this time I would recommend to continue with the diuretics. I would also recommend a regular dose of potassium as well. Otherwise, guarded prognosis because of multiple complex medical issues and further recommendations to follow. See orders for further details. MTDD
--- NOTE | 2016-04-20 12:59 | ECHOF ---
Referral Reason:chf MEASUREMENTS -------- HEIGHT: 157.5 cm WEIGHT: 51.7 kg BP: 108/54 RVIDd: 2.2 cm (< 3.3) IVSd: 0.9 cm (0.6 - 1.1) LVIDd: 4.3 cm (3.9 - 5.3) LVPWd: 1.0 cm (0.6 - 1.1) IVSs: 1.2 cm LVIDs: 2.7 cm LVPWs: 1.1 cm LA Diam: 2.8 cm (2.7 - 3.8) LAESV Index (A-L): 23.49 ml/m Ao Diam: 2.8 cm (2.0 - 3.7) AV Cusp: 1.7 cm (1.5 - 2.6) LA Diam: 3.6 cm (2.7 - 3.8) MV EXCURSION: 14.642 mm (> 18.000) MV EF SLOPE: 81 mm/s (70 - 150) EPSS: 0.4 cm MV E Brian: 0.66 m/s MV DecT: 180 ms MV A Brian: 0.39 m/s MV E/A Ratio: 1.69 AR PHT: 840 ms RAP: 5.00 mmHg RVSP: 30.27 mmHg FINDINGS -------- Sinus rhythm. This was a technically adequate study. There is borderline concentric left ventricular hypertrophy. Overall left ventricular systolic function is mildly impaired with, an EF between 45 - 50 %. Anterseptal Hypokinesis Lateral hypokinesis The right ventricle is normal in size. The right atrial size is normal. There is mild aortic valve sclerosis. Trace to mild aortic regurgitation. Mild mitral annular calcification present. Mild mitral regurgitation is present. Mild tricuspid regurgitation present. There is no evidence of pulmonary hypertension. The right ventricular systolic pressure, as measured by Doppler, is 30.27mmHg. There is no pulmonic regurgitation present. The aortic root size is normal. There is no pericardial effusion. CONCLUSIONS -------- 1. There is borderline concentric left ventricular hypertrophy. 2. There is no evidence of pulmonary hypertension. 3. The right ventricular systolic pressure, as measured by Doppler, is 30.27mmHg. 4. There is no pulmonic regurgitation present. 5. The aortic root size is normal. 6. There is no pericardial effusion. 7. Overall left ventricular systolic function is mildly impaired with, an EF between 45 - 50 %. 8. Anterseptal Hypokinesis 9. Lateral hypokinesis 10. There is mild aortic valve sclerosis. 11. Trace to mild aortic regurgitation. 12. Mild mitral annular calcification present. 13. Mild mitral regurgitation is present. 14. Mild tricuspid regurgitation present. GATE TENDER: Christen Dean RDCS
[2016-04-20] MEDS ORDERED: NITROGLYCERIN SL TABS 0.4 MG TAB SUBLINGUAL PRN (14:55)
[2016-04-20] MEDS ORDERED: ASPIRIN 325 MG TAB PO STA (14:55)
[2016-04-20] MEDS ORDERED: ALPRAZolam 0.5 MG TAB PO PRN (14:55)
[2016-04-20] MEDS ORDERED: ATORVASTATIN 80 MG TAB PO STA (14:55)
[2016-04-20] MEDS ORDERED: ALPRAZolam 0.25 MG TAB PO PRN (14:55)
[2016-04-20] MEDS ORDERED: SODIUM CHLORIDE 0.9% 1,000 ML in EMPTY BAG 1 BAG IV ONE (14:55)
--- NOTE | 2016-04-20 15:51 | P.PN ---
Subjective Principal diagnosis: UTI/sepsis This is a 80-year-old female who presented to the hospital with symptoms of fever and urinary tract infection. She was also noted to have elevation in troponin with some ST-T wave changes also noted on her EKG. Echocardiogram with Doppler study was performed which revealed an ejection fraction between 45 and 50% with anterior septal and lateral hypokinesia. She continues to be on IV Lasix at this time. Dr. terrance Castro did have a discussion with the patient today regarding proceeding with cardiac catheterization, the risks and the benefits were explained to the patient in detail. This will be performed tomorrow by Dr. Morris. Potassium 3.1, replaced. Weight is down 4 kg. Objective - Vital Signs Vital signs: Vital Signs Temp 96.6 F L 04/20/16 15:40 Pulse 58 L 04/20/16 15:40 Resp 16 04/20/16 15:40 BP 127/63 04/20/16 15:40 Pulse Ox 99 04/20/16 15:40 Intake & Output 04/19/16 04/20/16 04/20/16 18:59 06:59 18:59 Intake Total 126.554 0041.795 300 Output Total 1999 2375 2650 Balance -1150.000 -1299.205 -2350 Weight 56.2 kg 52 kg Intake: IV 100 200 Ampicillin-Sulbactam 3 gm 100 200 In Sodium Chloride 0.9% 100 ml @ 100 mls/hr IVPB Q8H [facility] Rx#:[id number] Intake, IV Titration 750.000 475.795 Amount 0.9% NaCl with KCl 40 Meq 0 110 /l 1,000 ml @ 75 mls/hr IV .[id number] [facility] Rx#: [id number] Heparin Sodium,Porcine/ 500.000 365.795 D5w Pmx 25,000 unit In Dextrose/Water 1 500ml. bag @ 12 UNITS/KG/HR 13 mls/hr IV .Q24H [facility] Rx#: [id number] Vancomycin 1,000 mg In 250 Sodium Chloride 0.9% 250 ml @ 125 mls/hr IVPB Q16H [facility] Rx#:[id number] Oral 400 300 Output: Urine 1999 2375 2650 Other: Voiding Method Toilet Toilet Toilet # Voids 1 1 1 - Exam PHYSICAL EXAMINATION: HEENT: Head is atraumatic, normocephalic. Pupils equal, round. Neck is supple. There is no elevated jugular venous pressure. HEART EXAMINATION: Heart S1, S2 normal. No murmur or gallop heard. CHEST EXAMINATION: Lungs are clear to auscultation and precussion. No chest wall tenderness is noted on palpation or with deep breathing. ABDOMEN: Soft, nontender. Bowel sounds are heard. No organomegaly noted. EXTREMITIES: 2+ peripheral pulses with no evidence of peripheral edema and no calf tenderness noted. NEUROLOGIC patient is awake, alert and oriented -3. . - Labs CBC & Chem 7: 04/20/16 05:50 04/20/16 12:10 Labs: Abnormal Lab Results - Last 24 Hours (Table) 04/19/16 04/20/16 04/20/16 Range/Units 18:07 05:50 05:50 RBC 3.31 L (3.80-5.40) m/uL Hgb 10.2 L (11.4-16.0) gm/dL Hct 31.7 L (34.0-46.0) % APTT (22.0-30.0) sec Potassium 3.1 L 3.1 L (3.5-5.1) mmol/L Chloride 109 H (98-107) mmol/L Glucose 100 H (74-99) mg/dL Calcium 7.9 L (8.4-10.2) mg/dL 04/20/16 04/20/16 Range/Units 05:50 12:10 RBC (3.80-5.40) m/uL Hgb (11.4-16.0) gm/dL Hct (34.0-46.0) % APTT 64.8 H (22.0-30.0) sec Potassium 3.2 L (3.5-5.1) mmol/L Chloride (98-107) mmol/L Glucose (74-99) mg/dL Calcium (8.4-10.2) mg/dL Microbiology - Last 24 Hours (Table) 04/17/16 01:39 Blood Culture - Preliminary Blood No Growth after 72 hours 04/17/16 01:06 Blood Culture - Preliminary Blood No Growth after 72 hours Assessment and Plan (1) Sepsis Status: Acute (2) Non-ST elevated myocardial infarction Status: Acute (3) Diastolic CHF, acute on chronic Status: Acute (4) Rheumatoid arthritis Status: Acute (5) Hypothyroid Status: Acute (6) UTI (urinary tract infection) Status: Acute Plan: Cardiology's perspective, we'll discontinue the IV Lasix and start the patient on oral diuretics. Patient will undergo cardiac catheterization tomorrow by Dr. Morris. Further recommendations will be based on these findings. We will check lytes BUN and creatinine in the morning. DNP note has been reviewed, I agree with a documented findings and plan of care. Patient was seen and examined.
[2016-04-20] MEDS: ATORVASTATIN 20 MG TAB PO SCH (20:45)
--- NOTE | 2016-04-20 21:37 | PN ---
DATE OF SERVICE: 04/20/2015 This 80-year-old woman who was admitted with abdominal pain also had right renal complex mass lesion, elevated troponins. Seen and evaluated the patient along with nurse practitioner. Please refer to the nurse practitioner notes and impression documented as a scribe for further information.
--- NOTE | 2016-04-20 22:08 | P.PN ---
Subjective Principal diagnosis: Fever Pleasant 80-year-old woman who emigrated from [facility] [place] years ago relates that she was in her usual state of quite good health when she had the onset of fever with chills associated with abdominal pain that was more to the right side of her abdomen which was anterior and to the right flank. The patient has a known history of a complex lesion on her right kidney and follows with her primary care physician. There was concerns to a recent bout of cystitis and she was placed on nitrofurantoin. Patient diuresis and she was feeling slightly better than at the significant worsening of her symptoms as above. In because of her increasing symptoms she presented to [facility] emergency [facility]. With those of fever and leukocytosis she was admitted to hospital. He was concerns to sepsis, urinary infection and possible pulmonary infection the infectious diseases consultation was requested. She has been seen by cardiology because she was having difficulties with her shortness of breath. She had abnormal cardiac enzymes there was a concern to a non-Q wave myocardial infarction and workup is incurring at this point in time. She remains on her heparin drip pending the cardiac catheterization tomorrow. She's feeling considerably better today. Fever has resolved. Objective - Vital Signs Vital signs: Vital Signs Temp 97 F L 04/20/16 20:22 Pulse 61 04/20/16 20:22 Resp 16 04/20/16 20:22 BP 120/62 04/20/16 20:22 Pulse Ox 96 04/20/16 20:22 Intake & Output 04/20/16 04/20/16 04/21/16 06:59 18:59 06:59 Intake Total 1075.795 969 227.098 Output Total 2375 2950 Balance -1299. 227.098 Weight 52 kg Intake: IV 200 Ampicillin-Sulbactam 3 gm 200 In Sodium Chloride 0.9% 100 ml @ 100 mls/hr IVPB Q8H [facility] Rx#:[id number] Intake, IV Titration 475.795 549 227.098 Amount 0.9% NaCl with KCl 40 Meq 110 /l 1,000 ml @ 75 mls/hr IV .[id number] [facility] Rx#: [id number] Ampicillin-Sulbactam 3 gm 100 In Sodium Chloride 0.9% 100 ml @ 100 mls/hr IVPB [facility] Rx#:[id number] Heparin Sodium,Porcine/ 365.795 227.098 D5w Pmx 25,000 unit In Dextrose/Water 1 500ml. bag @ 12 UNITS/KG/HR 13 mls/hr IV .Q24H [facility] Rx#: [id number] Sodium Chloride 0.9% 1, 324 000 ml In Empty Bag 1 bag @ 1 ML/KG/HR 52 mls/hr IV .[id number] [facility] Rx#: [id number] Vancomycin 1,000 mg In 125 Sodium Chloride 0.9% 250 ml @ 125 mls/hr IVPB Q16H [facility] Rx#:[id number] Oral 400 420 Output: Urine 2375 2950 Other: Voiding Method Toilet Toilet Toilet # Voids 1 1 - Exam pleasant 80-year-old womanappears to be just mildly short of breath. no significant cough to the exam HEENT: Anicteric conjunctiva are pink and moist nasal mucosa grossly intact without significant lesions, there is no thrush.good dentition Neck: The neck is supple without significant lymphadenopathy or thyromegaly. Lungs: there is symmetrical air entry. The R few bibasilar crackles There are a few expiratory wheezes Heart: Regular rate and rhythm with an audible S1-S2, no S3 no S4. There is no significant murmur click or rub, PMI was nondisplaced. Abdomen: Positive bowel sounds soft and nontender without palpable masses or organomegaly. There was no guarding or rebound. Extremities: The upper extremities have excellent pulses they are symmetric, no significant petechiae or telangiectasia. No splinter hemorrhages were noted. The lower extremitieshave just trace edema. The peripheral pulses were 2+ and symmetric. Neuro: Awake alert oriented to person place and time. There are no acute new gross focal sensory motor deficits. - Labs CBC & Chem 7: 04/20/16 05:50 04/20/16 12:10 Labs: Abnormal Lab Results - Last 24 Hours (Table) 04/20/16 04/20/16 04/20/16 Range/Units 05:50 05:50 05:50 RBC 3.31 L (3.80-5.40) m/uL Hgb 10.2 L (11.4-16.0) gm/dL Hct 31.7 L (34.0-46.0) % APTT 64.8 H (22.0-30.0) sec Potassium 3.1 L (3.5-5.1) mmol/L Chloride 109 H (98-107) mmol/L Glucose 100 H (74-99) mg/dL Calcium 7.9 L (8.4-10.2) mg/dL 04/20/16 Range/Units 12:10 RBC (3.80-5.40) m/uL Hgb (11.4-16.0) gm/dL Hct (34.0-46.0) % APTT (22.0-30.0) sec Potassium 3.2 L (3.5-5.1) mmol/L Chloride (98-107) mmol/L Glucose (74-99) mg/dL Calcium (8.4-10.2) mg/dL Microbiology - Last 24 Hours (Table) 04/17/16 01:39 Blood Culture - Preliminary Blood No Growth after 72 hours 04/17/16 01:06 Blood Culture - Preliminary Blood No Growth after 72 hours Laboratory Results WBC 9.5 k/uL (3.8-10.6) 04/20/16 05:50 RBC 3.31 m/uL (3.80-5.40) L 04/20/16 05:50 Hgb 10.2 gm/dL (11.4-16.0) L 04/20/16 05:50 Hct 31.7 % (34.0-46.0) L 04/20/16 05:50 MCV 95.7 fL (80.0-100.0) 04/20/16 05:50 MCH 30.7 pg (25.0-35.0) 04/20/16 05:50 MCHC 32.1 g/dL (31.0-37.0) 04/20/16 05:50 RDW 12.5 % (11.5-15.5) 04/20/16 05:50 Plt Count 163 k/uL (150-450) 04/20/16 05:50 Neutrophils % 73 % 04/20/16 05:50 Lymphocytes % 16 % 04/20/16 05:50 Monocytes % 5 % 04/20/16 05:50 Eosinophils % 2 % 04/20/16 05:50 Basophils % 0 % 04/20/16 05:50 Neutrophils # 7.0 k/uL (1.3-7.7) 04/20/16 05:50 Lymphocytes # 1.5 k/uL (1.0-4.8) 04/20/16 05:50 Monocytes # 0.5 k/uL (0-1.0) 04/20/16 05:50 Eosinophils # 0.2 k/uL (0-0.7) 04/20/16 05:50 Basophils # 0.0 k/uL (0-0.2) 04/20/16 05:50 PT 10.9 sec (9.0-12.0) 04/17/16 20:03 INR 1.1 (<1.1) 04/17/16 20:03 APTT 64.8 sec (22.0-30.0) H 04/20/16 05:50 D-Dimer 32.25 mg/L FEU (<0.60) H 04/17/16 01:06 Sodium 142 mmol/L (137-145) 04/20/16 05:50 Potassium 3.2 mmol/L (3.5-5.1) L 04/20/16 12:10 Chloride 109 mmol/L (98-107) H 04/20/16 05:50 Carbon Dioxide 25 mmol/L (22-30) 04/20/16 05:50 Anion Gap 8 mmol/L 04/20/16 05:50 BUN 15 mg/dL (7-17) 04/20/16 05:50 Creatinine 0.60 mg/dL (0.52-1.04) 04/20/16 05:50 Est GFR (MDRD) Af Amer >60 (>60 ml/min/1.73 sqM) 04/20/16 05:50 Est GFR (MDRD) Non-Af >60 (>60 ml/min/1.73 sqM) 04/20/16 05:50 Glucose 100 mg/dL (74-99) H 04/20/16 05:50 Plasma Lactic Acid Arnel 1.4 mmol/L (0.7-2.0) 04/18/16 23:55 Calcium 7.9 mg/dL (8.4-10.2) L 04/20/16 05:50 Phosphorus 2.0 mg/dL (2.5-4.5) L 04/16/16 04:15 Magnesium 1.8 mg/dL (1.6-2.3) 04/17/16 06:19 Total Bilirubin 0.7 mg/dL (0.2-1.3) 04/16/16 04:15 AST 345 U/L (14-36) H 04/16/16 04:15 ALT 197 U/L (9-52) H 04/16/16 04:15 Alkaline Phosphatase 209 U/L (38-126) H 04/16/16 04:15 Total Creatine Kinase 101 U/L (30-135) 04/16/16 04:15 CK-MB (CK-2) 1.0 ng/mL (0.0-2.4) 04/16/16 04:15 CK-MB (CK-2) Rel Index 1.0 04/16/16 04:15 Troponin I 1.640 ng/mL (0.000-0.034) H* 04/18/16 03:20 NT-Pro-B Natriuret Pep 6600 pg/mL 04/17/16 18:13 Total Protein 5.8 g/dL (6.3-8.2) L 04/16/16 04:15 Albumin 3.3 g/dL (3.5-5.0) L 04/16/16 04:15 Urine Color Yellow 04/16/16 04:15 Urine Appearance Clear (Clear) 04/16/16 04:15 Urine pH 5.0 (5.0-8.0) 04/16/16 04:15 Ur Specific [place] 1.007 (1.001-1.035) 04/16/16 04:15 Urine Protein Trace (Negative) H 04/16/16 04:15 Urine Glucose (UA) Negative (Negative) 04/16/16 04:15 Urine Ketones Negative (Negative) 04/16/16 04:15 Urine Blood Trace (Negative) H 04/16/16 04:15 Urine Nitrate Negative (Negative) 04/16/16 04:15 Urine Bilirubin Negative (Negative) 04/16/16 04:15 Urine Urobilinogen <2.0 mg/dL (<2.0) 04/16/16 04:15 Ur Leukocyte Esterase Trace (Negative) H 04/16/16 04:15 Urine RBC 4 /hpf (0-5) 12/30/16 04:15 Urine WBC 7 /hpf (0-5) H 04/16/16 04:15 Urine WBC Clumps Rare /hpf (None) H 04/16/16 04:15 Ur Squamous Epith Cells <1 /hpf (0-4) 04/16/16 04:15 Amorphous Sediment Rare /hpf (None) H 04/16/16 04:15 Urine Bacteria Rare /hpf (None) H 04/16/16 04:15 Urine Mucus Rare /hpf (None) H 04/16/16 04:15 Vancomycin Trough 11.6 ug/mL 04/19/16 13:27 Microbiology 04/16/16 04:15 Blood Blood Culture - Preliminary No Growth after 96 hours 04/17/16 01:39 Blood Blood Culture - Preliminary No Growth after 72 hours 04/17/16 01:06 Blood Blood Culture - Preliminary No Growth after 72 hours 04/16/16 04:15 Urine,Voided Urine Culture - Final Assessment and Plan (1) Abdominal pain Narrative/Plan: Pleasant 80-year-old woman who immigrated from [place] 54 years ago presents to emergency center with fever and abdominal pain. Workup has been occurring so far and has revealed evidence of an ultrasound of the abdomen shows the complex renal mass of the right kidney. This is not new. A neurological consult has been requested it may be followed up in the outpatient setting depending on the findings. She is being treated with nitrofurantoin home, which of course would limited only to cystitis treatment. Is now being treated with ampicillin sulbactam and vancomycin while cultures are in process. Given the abnormal ultrasound with a positive Funk's sign was is reasonable choice with concerns for the possibility even of cholecystitis. However on the exam she has no right upper quadrant tenderness. And does not seem to have acute cholecystitis at this time. She does have shortness of breath is being followed by cardiology. Has concerns to a non-Q wave myocardial infarction. She is on heparin infusion and is being followed because of her shortness of breath. CT pulmonary angiogram without evidence of pulmonary embolism but concerns to pulmonary edema. Cultures are currently in process been negative so far. Urinalysis is surprisingly benign. But she was an outpatient antibiotic therapy. She has leukocytosis which is now improved. And has related is not having significant urinary symptoms but does have some pulmonary symptoms. Patient will have cardiac catheterization tomorrow. Afterwards further she will have antibiotic therapy can be considered. If cultures all remained negative potentially could be placed on oral Augmentin to complete a course of therapy. In ongoing follow-up with urology regarding the abnormality seen on her imaging studies. Status: Acute (2) UTI (urinary tract infection) Status: Acute
[2016-04-21] MEDS ORDERED: ASPIRIN 325 MG TAB PO ONE (04:00)
[2016-04-21] MEDS ORDERED: ATORVASTATIN 80 MG TAB PO ONE (05:00)
[2016-04-21] MEDS: AMPICILLIN-SULBACTAM 3 GM in SODIUM CHLORIDE 0.9% 100 ML IVPB SCH ×2 (05:57→13:41)
[2016-04-21] MEDS: LEVOTHYROXINE 25 MCG TAB PO SCH (05:57)
[2016-04-21 06:07] LABS: Glucose,Whole Blood 119 mg/dL (75-99)
[2016-04-21 06:57] LABS: Basophils % (A) 0 %; CH 31.5; CHCM 33.4; Eosinophils # (A) 0.2 k/uL (0-0.7); Eosinophils % (A) 2 %; HCT 35.9 % (34.0-46.0); HDW 2.45; HGB 11.8 gm/dL (11.4-16.0); Luc % (Auto) 2; Lymphocytes # (A) 1.4 k/uL (1.0-4.8); Lymphocytes % (A) 14 %; MCH 31.2 pg (25.0-35.0); MCHC 32.9 g/dL (31.0-37.0); MCV 94.9 fL (80.0-100.0); Mean Platelet Volume 6.7; Monocytes # (A) 0.4 k/uL (0-1.0); Monocytes % (A) 3 %; Neutrophils # (A) 8.2 k/uL (1.3-7.7); Neutrophils % (A) 79 %; RBC 3.78 m/uL (3.80-5.40); RDW 12.4 % (11.5-15.5); WBC 10.4 k/uL (3.8-10.6); WBC (Perox) 11.02
[2016-04-21 07:43] LABS: Anion Gap 12 mmol/L; Blood Urea Nitrogen 15 mg/dL (7-17); Calcium 8.9 mg/dL (8.4-10.2); Carbon Dioxide 30 mmol/L (22-30); Chloride 103 mmol/L (98-107); Glucose 117 mg/dL (74-99); Non-African American GFR(MDRD) >60 (>60 ml/min/1.73 sqM); Potassium 3.4 mmol/L (3.5-5.1); Sodium 145 mmol/L (137-145)
[2016-04-21] MEDS ORDERED: fentaNYL (PF) 50 MCG/ML 2 ML AMP ONE (08:30)
[2016-04-21] MEDS ORDERED: LIDOCAINE 2% INJ 20 MG/ML (20 ML MDV) ONE (08:30)
[2016-04-21] MEDS ORDERED: diphenhydrAMINE 50 MG/ML 1 ML VIAL ONE (08:31)
[2016-04-21] MEDS ORDERED: SODIUM CHLORIDE 0.9% (PF) 10 ML VIAL ONE (08:31)
[2016-04-21] MEDS ORDERED: VERAPAMIL 2.5 MG/ML 2 ML AMP ONE (08:31)
[2016-04-21] MEDS ORDERED: fentaNYL (PF) 50 MCG/ML 2 ML AMP IV ONE (08:34)
[2016-04-21] MEDS ORDERED: diphenhydrAMINE 50 MG/ML 1 ML VIAL IVP ONE (08:34)
[2016-04-21] MEDS ORDERED: LIDOCAINE 2% INJ 20 MG/ML SQ ONE (08:36)
[2016-04-21] MEDS ORDERED: SODIUM CHLORIDE 0.9% 1,000 ML IV ONE (08:40)
[2016-04-21] MEDS ORDERED: HEPARIN SODIUM 1,000 UNIT/ML VIAL ONE (08:40)
[2016-04-21] MEDS ORDERED: VERAPAMIL SYRINGE (5 MG/10 ML) INTRAARTER ONE (08:41)
[2016-04-21] MEDS ORDERED: HEPARIN SODIUM 1,000 UNIT/ML VIAL IV ONE (08:49)
[2016-04-21] MEDS ORDERED: IOHEXOL 350 MG/ML 100 ML BOTTLE INJ ONE (08:57)
[2016-04-21] MEDS ORDERED: RX INFO: IV CONTRAST WAS GIVEN 1 EACH MISC MISCELLANE PRN (09:04)
[2016-04-21] MEDS ORDERED: ATORVASTATIN 40 MG TAB PO SCH (09:06)
[2016-04-21] MEDS ORDERED: SODIUM CHLORIDE 0.9% 1,000 ML IV SCH (09:15)
[2016-04-21] MEDS ORDERED: LISINOPRIL 5 MG TAB PO SCH (09:15)
[2016-04-21] MEDS: FUROSEMIDE 10 MG/ML 4 ML VIAL IV SCH (09:20)
[2016-04-21] MEDS: METOPROLOL TARTRATE 25 MG TAB PO SCH (09:22)
[2016-04-21] MEDS: ISOSORBIDE MONONITRATE ER 30 MG TAB.ER.24H PO SCH (09:22)
[2016-04-21] MEDS: POTASSIUM CHLORIDE ER 20 MEQ TAB.ER PO SCH (09:23)
[2016-04-21] MEDS: 0.9% NACL WITH KCL 40 MEQ/L 1,000 ML IV SCH (11:31)
[2016-04-21] MEDS: VANCOMYCIN 1,000 MG in SODIUM CHLORIDE 0.9% 250 ML IVPB SCH (14:35)
[2016-04-21 15:50] VITALS: BP 109/54; PULSE 62; TEMP 97.6
--- NOTE | 2016-04-21 21:03 | CC ---
DATE OF SERVICE: Mrs. Bryson is a 80-year-old female with known history of hyperlipidemia, who presented with urosepsis. She had mild elevation of troponin and T wave inversion anteriorly. In view of that, recommendation was made regarding cardiac catheterization. The procedure as well as the risks and complications were discussed with the patient who was in full understanding and agreement. PROCEDURE: The patient was brought to the [facility] in [facility] semisedated state. After receiving fentanyl and Benadryl she was draped and prepped in conventional fashion. Using Xylocaine anesthesia and Seldinger technique, a 6 Monegasque sheath was introduced in the right radial artery. Selective right and left coronary angiography was performed using 5 Monegasque 3 and a half bend right and left Haider catheter. Multiple views of the right coronary artery including hemiaxial views were obtained. Following that, a 5 Monegasque tight pigtail catheter was introduced into the left ventricle and a 30 degree MARQUEZ view of the left ventricle was obtained. Following that, catheter and sheaths were removed. Hemostasis was obtained with deployment of TR band. There were no immediate complications. Patient is returned to her room in stable condition. Of note, the patient received 3000 units of intravenous heparin as well as intra-arterial verapamil. FINDINGS: Fluoroscopy: There is severe calcification involving all the coronary arteries. LEFT MAIN: This is a large-size vessel, trifurcating into left circumflex artery and left anterior descending coronary artery and ramus intermedius. Left main coronary artery is without any obstructive coronary artery disease. LEFT ANTERIOR DESCENDING CORONARY ARTERY: This is a large-size tapers down in the distal third giving rise to a large diagonal branch in the mid segment. The takeoff of the diagonal branch, there is a 30% plaque. The rest of the vessel has no high-grade stenosis. CIRCUMFLEX CORONARY ARTERY: Left circumflex: This is a nondominant vessel, giving rise to a large obtuse marginal branch. In the mid segment of the left circumflex, there is a plaque of about 50 to 60%. The rest of the vessel has no high-grade stenosis. Ramus intermedius. This vessel is small in caliber. There is no evidence of high-grade stenosis. RIGHT CORONARY ARTERY: This is a large dominant vessel, bifurcating distally into PDA and posterolateral segment and branches. The right PDA reaches towards the inferoapical segment. The right coronary artery in mid segment has an eccentric 40% plaque. The takeoff of the PDA has another 40% plaque. The rest of the vessel has no high-grade stenosis. Left ventriculogram: Left ventriculogram performed in 30 degrees MARQUEZ view and revealed the mid anterolateral wall hypokinesis. Estimated ejection fraction is 50%. There was no significant mitral regurgitation. HEMODYNAMICS: There was no gradient across the aortic valve. The left ventricular end-diastolic pressure was 12 mmHg. CONCLUSION: 1. Severely calcified coronary arteries. 2. Moderate triple vessel coronary artery disease. 3. Mildly impaired left ventricular systolic function. RECOMMENDATIONS: In view of the findings and the anatomy, I recommend continued medical therapy with the aggressive coronary risk factor modifications that have been initiated. Those findings and recommendations were discussed with the patient who is in full understanding and agreement.
--- NOTE | 2016-04-21 21:05 | LTR ---
April 21, 2016 RE: Fatou Bryson Dear Dr. Chen: I had the pleasure of performing cardiac catheterization on Mrs. Bryson at [facility] on the april and a full copy of procedure note will be forwarded to you. In brief, she was found to have calcified coronary arteries with moderate triple vessel coronary artery disease and based on those findings, I recommend continue medical therapy with aggressive coronary risk factor modifications that have been initiated. Thank you again for allowing me to participate in his care. Please feel to call for any questions. Sincerely, CIRO MAGANA MD
[2016-04-22] MEDS ORDERED: FUROSEMIDE 20 MG TAB PO SCH (09:00)
--- NOTE | 2016-04-22 17:23 | P.PN ---
Subjective Date of service 04/20/2016 Progress note being dictated for Dr. DeL eon. Interval history: This a 80-year-old female admitted with abdominal pain, right renal complex mass lesion, elevated troponins, CHF and multiple other medical issues. Evaluated by urology with recommendations noted. Diuresing well on Lasix IV push with 24-hour I&O reflecting a negative fluid balance. Breathing improving Hypokalemic, potassium 3.2, currently being supplemented. Maintained on heparin drip. Echo reporting moderately impaired LV function, EF 45-50%, anterior septal and lateral hypokinesis. Denies chest pain, palpitations or increasing shortness of breath. Cardiac catheterization planned for tomorrow. Afebrile, normal WBC. Objective - Vital Signs Vital signs: Vital Signs Temp 97 F L 04/20/16 20:22 Pulse 61 04/20/16 20:22 Resp 16 04/20/16 20:22 BP 120/62 04/20/16 20:22 Pulse Ox 96 04/20/16 20:22 Intake & Output 04/20/16 04/20/16 04/21/16 06:59 18:59 06:59 Intake Total 1075.795 969 Output Total 2375 2950 Balance -1299.205 -1980 Weight 52 kg Intake: IV 200 Ampicillin-Sulbactam 3 gm 200 In Sodium Chloride 0.9% 100 ml @ 100 mls/hr IVPB Q8H [facility] Rx#:[id number] Intake, IV Titration 475.795 549 Amount 0.9% NaCl with KCl 40 Meq 110 /l 1,000 ml @ 75 mls/hr IV .[id number] [facility] Rx#: [id number] Ampicillin-Sulbactam 3 gm 100 In Sodium Chloride 0.9% 100 ml @ 100 mls/hr IVPB [facility] Rx#:[id number] Heparin Sodium,Porcine/ 365.795 D5w Pmx 25,000 unit In Dextrose/Water 1 500ml. bag @ 12 UNITS/KG/HR 13 mls/hr IV .Q24H [facility] Rx#: [id number] Sodium Chloride 0.9% 1, 324 000 ml In Empty Bag 1 bag @ 1 ML/KG/HR 52 mls/hr IV .[id number] [facility] Rx#: [id number] Vancomycin 1,000 mg In 125 Sodium Chloride 0.9% 250 ml @ 125 mls/hr IVPB Q16H [facility] Rx#:[id number] Oral 400 420 Output: Urine 2375 2950 Other: Voiding Method Toilet Toilet Toilet # Voids 1 1 - Exam PHYSICAL EXAM: VITAL SIGNS: As above GENERAL: [Sitting up in bed, no acute distress] HEENT: [Pupils equal conjunctiva normal.] NECK: [Supple, no JVD] RESPIRATORY EFFORT:[Normal] LUNGS: Bilateral bases diminished, occasional scattered rhonchi] CARDIOVASCULAR[regular S1 and S2, no murmur, no gallop, no edema] GI: [Abdomen soft, nontender, no organomegaly positive bowel sounds.] PSYCH: [Alert and oriented -3, mood and affect normal.] NEURO: No focal deficits Microbiology 04/16/16 04:15 Blood Blood Culture - Final No Growth after 144 hours 04/17/16 01:39 Blood Blood Culture - Preliminary No Growth after 120 hours 04/17/16 01:06 Blood Blood Culture - Preliminary No Growth after 120 hours 04/16/16 04:15 Urine,Voided Urine Culture - Final - Labs CBC & Chem 7: 04/21/16 06:36 04/21/16 06:36 Labs: Abnormal Lab Results - Last 24 Hours (Table) 04/20/16 04/20/16 04/20/16 Range/Units 05:50 05:50 05:50 RBC 3.31 L (3.80-5.40) m/uL Hgb 10.2 L (11.4-16.0) gm/dL Hct 31.7 L (34.0-46.0) % APTT 64.8 H (22.0-30.0) sec Potassium 3.1 L (3.5-5.1) mmol/L Chloride 109 H (98-107) mmol/L Glucose 100 H (74-99) mg/dL Calcium 7.9 L (8.4-10.2) mg/dL 04/20/16 Range/Units 12:10 RBC (3.80-5.40) m/uL Hgb (11.4-16.0) gm/dL Hct (34.0-46.0) % APTT (22.0-30.0) sec Potassium 3.2 L (3.5-5.1) mmol/L Chloride (98-107) mmol/L Glucose (74-99) mg/dL Calcium (8.4-10.2) mg/dL Microbiology - Last 24 Hours (Table) 04/17/16 01:39 Blood Culture - Preliminary Blood No Growth after 72 hours 04/17/16 01:06 Blood Culture - Preliminary Blood No Growth after 72 hours Assessment and Plan Plan: 1. [Abdominal pain, possible acute UTI with sepsis, possible right-sided pyelonephritis]. 2. [Possible right renal complex mass lesion of the kidneys]. Triphase CT of kidneys OP as per Urology. 3. [Elevated Troponin up to 2.110, acute non-STEMI]. 4. [Acute on chronic exacerbation of CHF, diastolic dysfunction, EF 45-50% . 5. [Severe hypokalemia]. 6. [Anemia, normocytic of chronic disease]. 7. [Hyponatremia]. 8. Increased AST, ALT, possible acute hepatitis of undetermined origin 9. Increased alkaline phosphatase 10. Hypoalbuminemia 11. Rheumatoid arthritis 12. Hypothyroidism 13. Degenerative joint disease, immunosuppressed Plan: Continue on current medication regime , Lasix, monitoring and symptomatic treatment. Antibiotics as per infectious disease. IV push Lasix converted to oral Scheduled for cardiac catheterization tomorrow with cardiology. Potassium currently being replaced. Close monitoring of electrolytes with repeat labs ordered for a.m. The impression and plan of care has been dictated as directed. : I performed a H&P examination of this patient and discussed the same with the dictator. I agree with the dictator's note. Any additional findings/opinions/ etc. will be noted.
--- NOTE | 2016-04-22 23:32 | DS ---
DATE OF ADMISSION: 04/16/2016 DATE OF DISCHARGE: 04/21/2016 FINAL DIAGNOSES: 1. Abdominal pain, acute urinary tract infection with sepsis, possible pyelonephritis on the right side, present on admission. 2. Possible right renal complex mass in the kidney. 3. Troponin elevated at 2.110; possible acute mtr-LW-ffowgmk-elevation myocardial infarction, status post cardiac catheterization showing severe calcific coronary artery disease and moderate triple-vessel coronary artery disease and mildly impaired left ventricular dysfunction, on medical treatment. 4. Congestive heart failure, acute exacerbation, with mild acute systolic dysfunction; ejection fraction 40% to 50% with wall hypokinesis. 5. Severe hypokalemia. 6. Anemia, normocytic; anemia of chronic disease. 7. Hyponatremia. 8. Increased AST, ALT; possible acute hepatitis of undetermined origin. 9. Increased alkaline phosphatase. 10. Hypoalbuminemia. 11. History of rheumatoid arthritis. 12. History of hypothyroidism. 13. History of degenerative joint disease, immunosuppressed. 14. FULL CODE. DISCHARGE DISPOSITION: The patient will be discharged in stable condition with guarded prognosis. Total time taken 35 minutes. Cardiology cleared the patient for discharge. HISTORY OF PRESENT ILLNESS: This 80-year-old woman with a past medical history of multiple medical problems was admitted with features of UTI and sepsis. Patient was treated with antibiotics. Patient also had significant features of CHF as well as myocardial infarction. Cardiac catheterization showed moderate coronary artery disease; treated medically; improved significantly. On exam, vitals are stable. CARDIOVASCULAR SYSTEM: S1, S2 muffled. ABDOMEN: Soft. No tenderness. NERVOUS SYSTEM: No focal deficit. The patient is keen on going home. DISCHARGE ADVICE AND MEDICATIONS: 1. Diet is cardiac. 2. Activity limited until followup. 3. Follow up with Dr. Jessica Blas in 2 to 3 days. 4. Follow up with Dr. Cisneros as recommended. 5. Follow up with Dr. Morris as recommended. 6. Follow up with Dr. Rodriguze as recommended 7. Augmentin 875 mg p.o. b.i.d. for 10 days. 8. Aspirin 81 mg daily. 9. Lipitor 40 mg at bedtime. 10. Lasix 20 mg p.o. daily. 11. Imdur ER 30 mg p.o. daily. 12. Synthroid 25 mcg p.o. daily. 13. Zestril 5 mg p.o. b.i.d. 14. Lopressor 25 mg p.o. b.i.d. 15. Nitroglycerin 0.4 sublingually p.r.n. 16. KCl 30 mEq p.o. b.i.d. 17. CBC, BMP in 2 to 3 days with primary physician, and adjustment of the dose of multiple medications, including Lasix and potassium. MTDD
== END 2016-04-21 18:57 | disposition home or self-care (01) | DRG 871 ==
LOC: EC 03:16 → 5MS5E 04:46 → 6SEL 06:02
PROVIDERS: ADMIT Internal Medicine; ATTEND Internal Medicine
PROC: B2111ZZ Fluoroscopy of Multiple Coronary Arteries using Low Osmolar Contrast (ICD-10-PCS; 2016-04-21)
PROC: B2151ZZ Fluoroscopy of Left Heart using Low Osmolar Contrast (ICD-10-PCS; 2016-04-21)
PROC: 4A023N7 Measurement of Cardiac Sampling and Pressure, Left Heart, Percutaneous Approach (ICD-10-PCS; principal; 2016-04-21 10:55)
DX: A41.9 Sepsis, unspecified organism (principal); I21.4 Non-ST elevation (NSTEMI) myocardial infarction; I50.43 Acute on chronic combined systolic (congestive) and diastolic (congestive) heart failure; E87.1 Hypo-osmolality and hyponatremia; E86.0 Dehydration; N12 Tubulo-interstitial nephritis, not specified as acute or chronic; D41.01 Neoplasm of uncertain behavior of right kidney; B17.9 Acute viral hepatitis, unspecified; I25.10 Atherosclerotic heart disease of native coronary artery without angina pectoris; E87.6 Hypokalemia; E88.09 Other disorders of plasma-protein metabolism, not elsewhere classified; N30.90 Cystitis, unspecified without hematuria; D63.8 Anemia in other chronic diseases classified elsewhere; E03.9 Hypothyroidism, unspecified; R53.1 Weakness; R74.8 Abnormal levels of other serum enzymes; R11.0 Nausea; R19.7 Diarrhea, unspecified; M06.9 Rheumatoid arthritis, unspecified; M19.90 Unspecified osteoarthritis, unspecified site; E78.5 Hyperlipidemia, unspecified; Z87.440 Personal history of urinary (tract) infections; Z96.652 Presence of left artificial knee joint; Z79.1 Long term (current) use of non-steroidal anti-inflammatories (NSAID); Z79.899 Other long term (current) drug therapy; Z90.710 Acquired absence of both cervix and uterus
CPT/HCPCS: 36415; 71010; 71020; 71275; 76705; 80048; 80053; 80202; 81001; 82550; 82553; 83605; 83735; 83880; 84100; 84132; 84484; 85025; 85379; 85610; 85730; 87040; 87086; 93005; 93306; 93458; 94640; 96365; 99285

== ENCOUNTER → 2016-04-26 | Outpatient (CLI) | payer MEDICARE, BC ==
[2016-04-26 17:57] LABS: CH 31.5; CHCM 32.8; HCT 35.4 % (34.0-46.0); HDW 2.35; HGB 11.7 gm/dL (11.4-16.0); MCH 31.8 pg (25.0-35.0); MCHC 33.1 g/dL (31.0-37.0); MCV 96.3 fL (80.0-100.0); Mean Platelet Volume 6.6; RBC 3.67 m/uL (3.80-5.40); WBC 15.3 k/uL (3.8-10.6)
[2016-04-26 17:59] LABS: Appearance,Urine Clear (Clear); Bilirubin,Urine Negative (Negative); Glucose,Urine (UA) Negative (Negative); Ketones,Urine Negative (Negative); Leukocyte Esterase,Urine Negative (Negative); Nitrite,Urine Negative (Negative); PH, Urine 5.5 (5.0-8.0); Protein,Urine Negative (Negative); Specific Gravity,Urine 1.011 (1.001-1.035); UA Billing (MACRO vs. MICRO) CHEM; Urobilinogen,Urine <2.0 mg/dL (<2.0)
[2016-04-26 18:07] LABS: ALT 80 U/L (9-52); AST 46 U/L (14-36); Alkaline Phosphatase 151 U/L (38-126); Anion Gap 12 mmol/L; Blood Urea Nitrogen 34 mg/dL (7-17); Calcium 9.4 mg/dL (8.4-10.2); Carbon Dioxide 24 mmol/L (22-30); Chloride 99 mmol/L (98-107); Glucose 107 mg/dL (74-99); Non-African American GFR(MDRD) 53 (>60 ml/min/1.73 sqM); Potassium 5.3 mmol/L (3.5-5.1); Sodium 135 mmol/L (137-145); Total Bilirubin 0.7 mg/dL (0.2-1.3); Total Protein 6.9 g/dL (6.3-8.2)
== END | disposition home or self-care (01) ==
LOC: RADXRMAIN 17:12
PROVIDERS: ATTEND Family Medicine
DX: I50.9 Heart failure, unspecified (principal); I21.3 ST elevation (STEMI) myocardial infarction of unspecified site; N28.89 Other specified disorders of kidney and ureter
CPT/HCPCS: 36415; 74170; 80053; 81003; 83880; 85027; 87086

== ENCOUNTER → 2016-04-26 | Outpatient (CLI) | payer MEDICARE, BC ==
--- NOTE | 2016-04-27 08:44 | CT ---
EXAMINATION TYPE: CT abdomen wo/w con DATE OF EXAM: 04/26/2016 6:42 PM COMPARISON: CT 15 April 2016 HISTORY: follow up renal mass CT DLP: 397.9 mGycm Automated exposure control for dose reduction was used. TECHNIQUE: Helical acquisition of images from the lung bases through the pelvis have been completed. CONTRAST: Performed with Oral Contrast and with IV Contrast, patient injected with 80 mL of Visipaque 320. FINDINGS: LUNG BASES: Some minimal dependent atelectatic changes or scarring is present, there is a granuloma s uspected within the lingula as on prior exam, there are coronary artery calcifications and cardiac en largement AORTA: Extensive atheromatous changes are present within the abdominal aorta, the area aortic stenos is is suspected at the level just inferior to the renal arteries with there is dense calcification. C eliac axis, superior and inferior mesenteric arteries are patent, common iliac arteries are patent. LIVER/GB: Liver shows low attenuation possibly due to fatty infiltration. Gallbladder is contracted. PANCREAS: No significant abnormality is seen. SPLEEN: No significant abnormality is seen. ADRENALS: There is an indeterminate right adrenal mass measuring approximately 2.5 cm, the lesion val ws solid appearance. KIDNEYS: Some pelvic caliectasis noted within the kidneys. Cystic right mid pole renal mass measures approximately 3.5 cm and shows a somewhat thickened wall laterally, there is some suggestion of thick ening along the lateral conal fascia with extension towards the colon and inferior margin of the righ t lobe of the liver at this level, some local inflammatory change. The attenuation is comparable to c yst fluid within the mass. This is showing interval change as compared to prior window is somewhat in creased attenuation at this level. REPRODUCTIVE ORGANS: Not included BOWEL: No significant abnormality is seen. FREE AIR: No Free Air visible ASCITES: None visible. PELVIC ADENOPATHY: Not included RETROPERITONEAL ADENOPATHY: No Retroperitoneal Adenopathy visible. URINARY BLADDER: Not included OSSEOUS STRUCTURES: Degenerative disc changes are present. There is a scoliotic curvature in the vis ualized spine. Anterolisthesis grade 1 L3-4, L4-5, retrolisthesis grade 1 L2-3. Multilevel foraminal encroachment. IMPRESSION: RIGHT RENAL MASS IS THOUGHT TO BE CYSTIC, INCREASED ATTENUATION ON PREVIOUS EXAM MAY BEEN RELATED TO SOME INFLAMMATORY CHANGE, SOME RESIDUAL SUSPECTED WITH AREAS OF LOCAL THICKENING AND DIRTY FAT. Suspect a benign right renal cyst, correlate for possible inflammatory changes within the colon on pr ior exam. Follow-up to assess for stability. Indeterminate right adrenal mass, follow-up recommended. Bilateral renal pelvic caliectasis. Aortic s tenosis suspected. Additional findings above.
== END | disposition home or self-care (01) ==
LOC: RADCTMAIN 17:04
PROVIDERS: ATTEND Urology
DX: N28.89 Other specified disorders of kidney and ureter (principal)
CPT/HCPCS: 74170; 36415; Q9967